=== PATIENT | female | born 1945 | race Caucasian/White ===

== ENCOUNTER 2020-02-05 16:14 | Emergency (ER) | payer MEDICARE ==
[~2020-02-05] VITALS: Ht 160 cm; Wt 72.6 kg
[2020-02-05] MEDS ORDERED: RISP1 PO ×2 (17:09→18:14)
[2020-02-05] MEDS ORDERED: RISP2 PO (17:10)
[2020-02-05] MEDS ORDERED: SODCHL1 PO (17:10)
[2020-02-05] MEDS ORDERED: ALBU90OI INH ×2 (17:10→18:14)
[2020-02-05] MEDS ORDERED: Aspirin EC81 MG PO (17:11)
[2020-02-05] MEDS ORDERED: AMLO5 PO (17:11)
[2020-02-05] MEDS ORDERED: BENA20 (17:12)
[2020-02-05] MEDS ORDERED: Vitamin D2000 UNIT PO (17:12)
[2020-02-05] MEDS ORDERED: ATOR20 PO (17:12)
[2020-02-05] MEDS ORDERED: GABA100 PO (17:13)
[2020-02-05] MEDS ORDERED: HYDPAM25 PO (17:14)
[2020-02-05] MEDS ORDERED: LABE100 PO (17:14)
[2020-02-05] MEDS ORDERED: MAGNESIUM OXID500 MG (17:14)
[2020-02-05] MEDS ORDERED: ONDA4 PO (17:15)
[2020-02-05] MEDS ORDERED: NICO21TP TOP (17:15)
[2020-02-05] MEDS ORDERED: PANT40 PO (17:16)
[2020-02-05] MEDS ORDERED: SENNA LAXATIVE8.6 MG PO (17:16)
[2020-02-05] MEDS ORDERED: Benazepril HCl20 MG PO (18:14)
[2020-02-05] MEDS ORDERED: Vistaril25 MG PO (18:14)
[2020-02-05] MEDS ORDERED: Norvasc5 MG PO (18:14)
[2020-02-08] MEDS ORDERED: Risperidone1 MG PO (16:51)
[2020-02-08] MEDS ORDERED: RISPERIDONE PO (16:52)
[2020-02-08] MEDS ORDERED: PROZAC20 MG PO (16:53)
[2020-02-08] MEDS ORDERED: Vistaril25 MG PO (16:53)
[2020-02-08] MEDS ORDERED: LOTENSIN20 MG PO (16:54)
[2020-02-08] MEDS ORDERED: ATORVASTATIN CA20 MG PO (16:54)
[2020-02-08] MEDS ORDERED: LABE100 PO (16:54)
== END 2020-02-05 19:40 | disposition home or self-care (01) ==
LOC: ER 16:14
DX: F41.0 Panic disorder [episodic paroxysmal anxiety] (principal); Z88.0 Allergy status to penicillin; Z88.1 Allergy status to other antibiotic agents; Z91.040 Latex allergy status; Z88.8 Allergy status to other drugs, medicaments and biological substances; Z79.899 Other long term (current) drug therapy; Z79.82 Long term (current) use of aspirin; F31.9 Bipolar disorder, unspecified
CPT/HCPCS: 99284

== ENCOUNTER 2020-02-06 16:04 | Emergency (ER) | payer MEDICARE ==
[~2020-02-06] VITALS: Ht 160 cm; Wt 72.6 kg
[~2020-02-06 16:04] MED LIST: ALBU90OI INH; AMLO5 PO; ATOR20 PO; Aspirin EC81 MG PO; BENA20; Benazepril HCl20 MG PO; GABA100 PO; HYDPAM25 PO; LABE100 PO; MAGNESIUM OXID500 MG; NICO21TP TOP; Norvasc5 MG PO; ONDA4 PO; PANT40 PO; RISP1 PO; RISP2 PO; SENNA LAXATIVE8.6 MG PO; SODCHL1 PO; Vistaril25 MG PO; Vitamin D2000 UNIT PO
[2020-02-06 16:32] LABS: BASOPHILS ABSOLUTE AUTO 0.04 K/mm3 (0.00-0.23); BASOPHILS PERCENT AUTO 1 % (0-2); EOSINOPHILS ABSOLUTE AUTO 0.37 K/mm3 (0.00-0.68); EOSINOPHILS PERCENT AUTO 5 % (0-6); Hemoglobin 13.1 g/dL (11.5-16.0); IMMATURE GRAN ABSOLUTE AUTO 0.03 K/mm3 (0.00-0.10); IMMATURE GRAN PERCENT AUTO 0 % (0-1); LYMPHOCYTES ABSOLUTE AUTO 1.75 K/mm3 (0.84-5.20); LYMPHOCYTES PERCENT AUTO 25 % (21-46); MONOCYTES ABSOLUTE AUTO 0.66 K/mm3 (0.16-1.47); MONOCYTES PERCENT AUTO 9 % (4-13); Mean Corpuscular HGB 31.3 pg (26.0-34.0); Mean Corpuscular HGB Conc 33.6 g/dL (31.5-36.5); Mean Corpuscular Volume 93 fL (80-100); Mean Platelet Volume 9.1 fL (9.1-12.4); NEUTROPHILS ABSOLUTE AUTO 4.29 K/mm3 (1.96-9.15); NEUTROPHILS PERCENT AUTO 60 % (41-73); Platelet Count 250 K/mm3 (150-400); RDW Coefficient Variation 12.9 % (11.7-14.2); RDW Standard Deviation 44.4 fL (35.1-46.3); Red Blood Cell Count 4.18 M/mm3 (3.80-5.20); White Blood Cell Count 7.14 K/mm3 (4.00-11.30)
[2020-02-06 16:55] LABS: Alanine Aminotransfer (ALT/SGP 28 U/L (12-78); Albumin, Blood 3.9 g/dL (3.4-5.0); Albumin/Globulin Ratio 1.2 (0.8-1.8); Alk Phos 82 U/L (50-136); Anion Gap 7 mmol/L (6-16); Aspartate Aminotrans (AST/SGOT 17 U/L (12-37); Bilirubin, Total 0.3 mg/dL (0.1-1.0); Blood Urea Nitrogen 14 mg/dL (8-24); Bun/Creatinine Ratio 19.7 (12.0-20.0); CO2, Blood 23 mmol/L (21-32); Calcium, Blood 9.5 mg/dL (8.5-10.1); Chloride, Blood 103 mmol/L (98-108); Creatinine, Blood 0.71 mg/dL (0.40-1.00); Globulin, Blood 3.3 g/dL (2.2-4.0); Glomerular Filtration Rate >60 (60-); Glucose, Blood 117 mg/dL (70-99); Potassium, Blood 3.6 mmol/L (3.5-5.5); Sodium, Blood 133 mmol/L (136-145); Total Protein, Blood 7.2 g/dL (6.4-8.2); Troponin I <0.015 ng/mL (0.000-0.040)
[2020-02-08] MEDS ORDERED: Risperidone1 MG PO (16:51)
[2020-02-08] MEDS ORDERED: RISPERIDONE PO (16:52)
[2020-02-08] MEDS ORDERED: Vistaril25 MG PO (16:53)
[2020-02-08] MEDS ORDERED: PROZAC20 MG PO (16:53)
[2020-02-08] MEDS ORDERED: LABE100 PO (16:54)
[2020-02-08] MEDS ORDERED: LOTENSIN20 MG PO (16:54)
[2020-02-08] MEDS ORDERED: ATORVASTATIN CA20 MG PO (16:54)
== END 2020-02-06 18:00 | disposition home or self-care (01) ==
LOC: ER 16:04
PROVIDERS: Student in an Organized Health Care Education/Training Program
DX: F41.0 Panic disorder [episodic paroxysmal anxiety] (principal); Z88.0 Allergy status to penicillin; Z88.1 Allergy status to other antibiotic agents; Z91.040 Latex allergy status; Z88.8 Allergy status to other drugs, medicaments and biological substances; Z79.899 Other long term (current) drug therapy; F31.9 Bipolar disorder, unspecified; F17.200 Nicotine dependence, unspecified, uncomplicated
CPT/HCPCS: 36415; 80053; 84484; 85025; 93005; 93010; 96374; 99284-25; J2060

== ENCOUNTER 2020-03-25 19:10 | Emergency (ER) | payer MEDICARE ==
[~2020-03-25] VITALS: Ht 165.1 cm; Wt 68.0 kg
[~2020-03-25 19:10] MED LIST changes: -AMLO5 PO; -GABA100 PO; -HYDPAM25 PO; -PANT40 PO; +RISPERIDONE PO; +Risperidone1 MG PO; -SODCHL1 PO
[2020-03-25 20:03] LABS: BASOPHILS ABSOLUTE AUTO 0.04 K/mm3 (0.00-0.23); BASOPHILS PERCENT AUTO 1 % (0-2); EOSINOPHILS ABSOLUTE AUTO 0.19 K/mm3 (0.00-0.68); EOSINOPHILS PERCENT AUTO 3 % (0-6); Hematocrit 34.1 % (33.0-51.0); Hemoglobin 12.2 g/dL (11.5-16.0); IMMATURE GRAN ABSOLUTE AUTO 0.04 K/mm3 (0.00-0.10); IMMATURE GRAN PERCENT AUTO 1 % (0-1); LYMPHOCYTES ABSOLUTE AUTO 2.18 K/mm3 (0.84-5.20); LYMPHOCYTES PERCENT AUTO 29 % (21-46); MONOCYTES ABSOLUTE AUTO 0.72 K/mm3 (0.16-1.47); MONOCYTES PERCENT AUTO 9 % (4-13); Mean Corpuscular HGB 31.6 pg (26.0-34.0); Mean Corpuscular HGB Conc 35.8 g/dL (31.5-36.5); Mean Corpuscular Volume 88 fL (80-100); NEUTROPHILS ABSOLUTE AUTO 4.45 K/mm3 (1.96-9.15); NEUTROPHILS PERCENT AUTO 59 % (41-73); Platelet Count 259 K/mm3 (150-400); RDW Coefficient Variation 11.9 % (11.7-14.2); RDW Standard Deviation 38.8 fL (35.1-46.3); Red Blood Cell Count 3.86 M/mm3 (3.80-5.20); White Blood Cell Count 7.62 K/mm3 (4.00-11.30)
[2020-03-25 20:20] LABS: Alanine Aminotransfer (ALT/SGP 17 U/L (12-78); Albumin, Blood 3.8 g/dL (3.4-5.0); Albumin/Globulin Ratio 1.2 (0.8-1.8); Alk Phos 78 U/L (50-136); Anion Gap 7 mmol/L (6-16); Aspartate Aminotrans (AST/SGOT 14 U/L (12-37); Bilirubin, Total 0.5 mg/dL (0.1-1.0); Blood Urea Nitrogen 10 mg/dL (8-24); Bun/Creatinine Ratio 19.4 (12.0-20.0); CO2, Blood 23 mmol/L (21-32); Calcium, Blood 8.6 mg/dL (8.5-10.1); Chloride, Blood 91 mmol/L (98-108); Creatinine, Blood 0.52 mg/dL (0.40-1.00); Globulin, Blood 3.3 g/dL (2.2-4.0); Glomerular Filtration Rate >60 (60-); Glucose, Blood 108 mg/dL (70-99); Potassium, Blood 3.7 mmol/L (3.5-5.5); Sodium, Blood 121 mmol/L (136-145); Total Protein, Blood 7.1 g/dL (6.4-8.2)
[2020-03-25] MEDS ORDERED: SODCHL1 PO (22:11)
[2020-03-25] MEDS ORDERED: Protonix40 MG PO (22:11)
== END 2020-03-25 22:28 | disposition home or self-care (01) ==
LOC: ER 19:10
PROVIDERS: Emergency Medicine
DX: R10.13 Epigastric pain (principal); Z88.0 Allergy status to penicillin; Z88.1 Allergy status to other antibiotic agents; Z91.040 Latex allergy status; Z88.8 Allergy status to other drugs, medicaments and biological substances; Z79.899 Other long term (current) drug therapy; Z79.82 Long term (current) use of aspirin; F41.9 Anxiety disorder, unspecified; F31.9 Bipolar disorder, unspecified; F17.200 Nicotine dependence, unspecified, uncomplicated
CPT/HCPCS: 36415; 80053; 85025; 96361; 96374; 96375; 96376; 99284-25; C9113; J1170; J2405; J7030

== ENCOUNTER 2020-03-29 13:29 | Emergency (ER) | payer MEDICARE ==
[~2020-03-29] VITALS: Ht 165.1 cm; Wt 68.0 kg
[~2020-03-29 13:29] MED LIST changes: +Protonix40 MG PO; +SODCHL1 PO
[2020-03-29 14:04] LABS: BASOPHILS ABSOLUTE AUTO 0.05 K/mm3 (0.00-0.23); BASOPHILS PERCENT AUTO 1 % (0-2); EOSINOPHILS ABSOLUTE AUTO 0.14 K/mm3 (0.00-0.68); EOSINOPHILS PERCENT AUTO 1 % (0-6); Hematocrit 34.9 % (33.0-51.0); Hemoglobin 12.2 g/dL (11.5-16.0); IMMATURE GRAN ABSOLUTE AUTO 0.03 K/mm3 (0.00-0.10); IMMATURE GRAN PERCENT AUTO 0 % (0-1); LYMPHOCYTES ABSOLUTE AUTO 2.24 K/mm3 (0.84-5.20); LYMPHOCYTES PERCENT AUTO 20 % (21-46); MONOCYTES ABSOLUTE AUTO 0.72 K/mm3 (0.16-1.47); MONOCYTES PERCENT AUTO 7 % (4-13); Mean Corpuscular Volume 89 fL (80-100); Mean Platelet Volume 9.4 fL (9.1-12.4); NEUTROPHILS ABSOLUTE AUTO 7.87 K/mm3 (1.96-9.15); NEUTROPHILS PERCENT AUTO 71 % (41-73); Platelet Count 258 K/mm3 (150-400); RDW Coefficient Variation 12.1 % (11.7-14.2); RDW Standard Deviation 39.8 fL (35.1-46.3); Red Blood Cell Count 3.93 M/mm3 (3.80-5.20); White Blood Cell Count 11.05 K/mm3 (4.00-11.30)
[2020-03-29 14:11] LABS: Alanine Aminotransfer (ALT/SGP 17 U/L (12-78); Albumin, Blood 3.7 g/dL (3.4-5.0); Albumin/Globulin Ratio 1.1 (0.8-1.8); Alk Phos 74 U/L (50-136); Anion Gap 8 mmol/L (6-16); Aspartate Aminotrans (AST/SGOT 15 U/L (12-37); Bilirubin, Total 0.3 mg/dL (0.1-1.0); Blood Urea Nitrogen 17 mg/dL (8-24); Bun/Creatinine Ratio 25.4 (12.0-20.0); CO2, Blood 24 mmol/L (21-32); Calcium, Blood 8.6 mg/dL (8.5-10.1); Chloride, Blood 90 mmol/L (98-108); Creatinine, Blood 0.67 mg/dL (0.40-1.00); Globulin, Blood 3.3 g/dL (2.2-4.0); Glomerular Filtration Rate >60 (60-); Glucose, Blood 98 mg/dL (70-99); Potassium, Blood 3.9 mmol/L (3.5-5.5); Sodium, Blood 122 mmol/L (136-145)
[2020-03-29 14:28] LABS: Source, Urine Clean Catch
[2020-03-29 14:50] LABS: Appearance, Urine Clear (Clear); Bilirubin, Urine Neg (Neg); Blood, Urine Neg (Neg); Color, Urine Yellow (P-Yellow); Glucose Qualitative, Urine Neg (Neg); Ketones, Urine Neg (Neg); Leukocyte Esterase, Urine Neg (Neg); Nitrite, Urine Neg (Neg); Protein, Urine Neg (Neg); Urobilinogen, Urine NORM (Normal)
[2020-03-29] MEDS ORDERED: Omeprazole20 M1 PO (17:11)
[2020-03-30] MEDS ORDERED: AMLO5 PO (22:33)
[2020-03-30] MEDS ORDERED: HYDPAM25 PO (22:33)
[2020-03-30] MEDS ORDERED: SODCHL1 PO (22:33)
[2020-03-30] MEDS ORDERED: PANT40 PO (22:34)
[2020-03-30] MEDS ORDERED: Prozac40 MG PO (22:38)
[2020-03-30] MEDS ORDERED: ATORVASTATIN CA20 MG PO (22:38)
[2020-03-30] MEDS ORDERED: GABA100 PO (22:39)
[2020-03-30] MEDS ORDERED: LOTENSIN20 MG PO (22:39)
[2020-03-30] MEDS ORDERED: ALBU90OI INH (22:39)
[2020-03-30] MEDS ORDERED: LABE100 PO (22:39)
[2020-04-02] MEDS ORDERED: ACETAMIN-CODE12.5 M3 PO (12:29)
[2020-04-02] MEDS ORDERED: Aspir 8181 MG PO (12:30)
[2020-04-02] MEDS ORDERED: MIRALAX17 GM PO (12:30)
[2020-04-02] MEDS ORDERED: CIPR500 PO (12:30)
[2020-04-02] MEDS ORDERED: DOCU100 PO (12:31)
[2020-04-02] MEDS ORDERED: Vitamin D2000 UNIT PO (12:31)
== END 2020-03-29 17:35 | disposition home or self-care (01) ==
LOC: ER 13:29
PROVIDERS: Physician Assistant
DX: K29.70 Gastritis, unspecified, without bleeding (principal); F41.9 Anxiety disorder, unspecified; F31.9 Bipolar disorder, unspecified; F17.200 Nicotine dependence, unspecified, uncomplicated; Z88.0 Allergy status to penicillin; Z88.8 Allergy status to other drugs, medicaments and biological substances; Z88.5 Allergy status to narcotic agent; Z79.82 Long term (current) use of aspirin; Z91.040 Latex allergy status; Z79.899 Other long term (current) drug therapy
CPT/HCPCS: 36415; 74177; 80053; 81003; 83690; 85025; 99284-25; Q9967

== ENCOUNTER 2020-03-30 19:40 | Inpatient (IN) | payer MEDICARE ==
[~2020-03-30] VITALS: Ht 165.1 cm; Wt 71.8 kg
[~2020-03-30 19:40] MED LIST changes: +Omeprazole20 M1 PO
[2020-03-30 20:44] LABS: BASOPHILS ABSOLUTE AUTO 0.04 K/mm3 (0.00-0.23); BASOPHILS PERCENT AUTO 1 % (0-2); EOSINOPHILS ABSOLUTE AUTO 0.25 K/mm3 (0.00-0.68); EOSINOPHILS PERCENT AUTO 3 % (0-6); Hemoglobin 12.8 g/dL (11.5-16.0); IMMATURE GRAN ABSOLUTE AUTO 0.04 K/mm3 (0.00-0.10); IMMATURE GRAN PERCENT AUTO 1 % (0-1); LYMPHOCYTES ABSOLUTE AUTO 2.33 K/mm3 (0.84-5.20); LYMPHOCYTES PERCENT AUTO 28 % (21-46); MONOCYTES ABSOLUTE AUTO 0.65 K/mm3 (0.16-1.47); MONOCYTES PERCENT AUTO 8 % (4-13); Mean Corpuscular HGB 31.4 pg (26.0-34.0); Mean Corpuscular HGB Conc 36.6 g/dL (31.5-36.5); Mean Corpuscular Volume 86 fL (80-100); Mean Platelet Volume 8.9 fL (9.1-12.4); NEUTROPHILS ABSOLUTE AUTO 5.06 K/mm3 (1.96-9.15); NEUTROPHILS PERCENT AUTO 60 % (41-73); Platelet Count 250 K/mm3 (150-400); RDW Coefficient Variation 11.8 % (11.7-14.2); RDW Standard Deviation 37.2 fL (35.1-46.3); Red Blood Cell Count 4.08 M/mm3 (3.80-5.20); White Blood Cell Count 8.37 K/mm3 (4.00-11.30)
[2020-03-30 21:04] LABS: Troponin I <0.015 ng/mL (0.000-0.040)
[2020-03-30 21:09] LABS: Alanine Aminotransfer (ALT/SGP 20 U/L (12-78); Albumin, Blood 3.9 g/dL (3.4-5.0); Albumin/Globulin Ratio 1.2 (0.8-1.8); Alk Phos 78 U/L (50-136); Anion Gap 8 mmol/L (6-16); Aspartate Aminotrans (AST/SGOT 15 U/L (12-37); Bilirubin, Total 0.4 mg/dL (0.1-1.0); Blood Urea Nitrogen 8 mg/dL (8-24); CO2, Blood 25 mmol/L (21-32); Chloride, Blood 86 mmol/L (98-108); Creatinine, Blood 0.57 mg/dL (0.40-1.00); Globulin, Blood 3.2 g/dL (2.2-4.0); Glomerular Filtration Rate >60 (60-); Glucose, Blood 102 mg/dL (70-99); Potassium, Blood 3.3 mmol/L (3.5-5.5); Sodium, Blood 119 mmol/L (136-145); Total Protein, Blood 7.1 g/dL (6.4-8.2)
[2020-03-30] MEDS ORDERED: SODCHL1 PO ×2 (22:33)
[2020-03-30] MEDS ORDERED: AMLO5 PO ×2 (22:33)
[2020-03-30] MEDS ORDERED: HYDPAM25 PO ×2 (22:33)
[2020-03-30] MEDS ORDERED: PANT40 PO ×2 (22:34)
[2020-03-30] MEDS ORDERED: Prozac40 MG PO ×2 (22:38)
[2020-03-30] MEDS ORDERED: ATORVASTATIN CA20 MG PO ×2 (22:38)
[2020-03-30] MEDS ORDERED: LOTENSIN20 MG PO ×2 (22:39)
[2020-03-30] MEDS ORDERED: GABA100 PO ×2 (22:39)
[2020-03-30] MEDS ORDERED: ALBU90OI INH ×2 (22:39)
[2020-03-30] MEDS ORDERED: LABE100 PO ×2 (22:39)
[2020-03-30 23:45] LABS: Albumin, Blood 3.8 g/dL (3.4-5.0); Anion Gap 9 mmol/L (6-16); Blood Urea Nitrogen 8 mg/dL (8-24); Bun/Creatinine Ratio 13.9 (12.0-20.0); CO2, Blood 23 mmol/L (21-32); Calcium, Blood 8.5 mg/dL (8.5-10.1); Chloride, Blood 89 mmol/L (98-108); Creatinine, Blood 0.58 mg/dL (0.40-1.00); Glomerular Filtration Rate >60 (60-); Glucose, Blood 97 mg/dL (70-99); Phosphorus, Blood 2.5 mg/dL (2.5-4.9); Potassium, Blood 3.2 mmol/L (3.5-5.5); Sodium, Blood 121 mmol/L (136-145)
--- NOTE | 2020-03-31 01:30 | NUR ---
ICU ADMIT PT ARRIVED TO ICU VIA GURNEY. SHE WAS ABLE TO STAND AND TRANSFER TO ICU BED WITH NO ISSUES. SHE WAS FAILRY STEADY ON HER FEET, BUT DID STATE HER LEGS FEEL WEAK. SHE IS C/O BACK PAIN AND SOME MINIMAL ABD PAIN. VITALS ARE STABLE AT THIS TIME. PT DOES HAVE POTASSIUM RUNNING IN HER IV AND THIS IS CAUSING HER A BIT OF DISCOMFORT. PT HAS AN IV TO HER RIGHT HAND THAT IS PATENT AND SL. PT'S ABD IS ROUND, SHE STATES IT HURTS WITH SOME PALPATATION. STATES SHE HAD A BM THIS AM AND THAT SHE IS MOSTLY CONSTIPATED. PT USED BSC IN ER FOR URINATION. OVERALL SKIN IS CDI WITH NO WOUNDS. PT WAS ABLE TO GIVE HER HEALTH HISTORY TO THIS RN. HOWEVER SHE DOES STATES SHE IS SURE THERE ARE THINGS SHE IS NOT TELL THIS RN B/C SHE CANNOT REMEMEBER THEM RIGHT NOW. PT IS COOPERATIVE WITH HER CARE, BUT ANXIOUS. BREATHING APPEARS TO BE SLIGHTLY LABORED. PT STATES THIS JUST STARTED EARLIER TODAY. PT ON RA WITH SATS 96%. PT'S LUNGS BILATERAL ARE VERY WHEEZY. DR PRATT IN ROOM TO ASSESS THE NEED FOR CENTRAL LINE ACCESS. CALL LIGHT WAS REVIEWED WITH PT AND IN REACH OF PT. WILL CON'T TO MONITOR AND KEEP PT SAFE.
[2020-03-31 01:45] LABS: Source, Urine Clean Catch
[2020-03-31 01:48] LABS: Bilirubin, Urine Neg (Neg); Blood, Urine 1+ (Neg); Glucose Qualitative, Urine Neg (Neg); Ketones, Urine 1+ (Neg); Leukocyte Esterase, Urine 2+ (Neg); Nitrite, Urine Neg (Neg); Protein, Urine 3+ (Neg); Specific Gravity, Urine 1.005 (1.003-1.022); Urobilinogen, Urine NORM (Normal)
[2020-03-31 02:10] LABS: Amorphous Light (0-Heavy); Appearance, Urine Hazy (Clear); Bacteria Few /hpf; Color, Urine Yellow (P-Yellow); Red Blood Cells, Urine 0-2 /hpf (0-2); Squamous Epithelial Cells Few /hpf (Few)
[2020-03-31 04:26] LABS: BASOPHILS ABSOLUTE AUTO 0.04 K/mm3 (0.00-0.23); BASOPHILS PERCENT AUTO 1 % (0-2); EOSINOPHILS ABSOLUTE AUTO 0.13 K/mm3 (0.00-0.68); EOSINOPHILS PERCENT AUTO 2 % (0-6); Hematocrit 35.8 % (33.0-51.0); Hemoglobin 12.8 g/dL (11.5-16.0); IMMATURE GRAN ABSOLUTE AUTO 0.04 K/mm3 (0.00-0.10); IMMATURE GRAN PERCENT AUTO 1 % (0-1); LYMPHOCYTES ABSOLUTE AUTO 1.39 K/mm3 (0.84-5.20); LYMPHOCYTES PERCENT AUTO 18 % (21-46); MONOCYTES ABSOLUTE AUTO 0.36 K/mm3 (0.16-1.47); MONOCYTES PERCENT AUTO 5 % (4-13); Mean Corpuscular HGB 31.1 pg (26.0-34.0); Mean Corpuscular HGB Conc 35.8 g/dL (31.5-36.5); Mean Corpuscular Volume 87 fL (80-100); Mean Platelet Volume 8.7 fL (9.1-12.4); NEUTROPHILS PERCENT AUTO 75 % (41-73); Platelet Count 228 K/mm3 (150-400); RDW Coefficient Variation 11.9 % (11.7-14.2); RDW Standard Deviation 38.3 fL (35.1-46.3); Red Blood Cell Count 4.12 M/mm3 (3.80-5.20); White Blood Cell Count 7.86 K/mm3 (4.00-11.30)
[2020-03-31 04:54] LABS: Albumin, Blood 3.9 g/dL (3.4-5.0); Anion Gap 8 mmol/L (6-16); Blood Urea Nitrogen 7 mg/dL (8-24); CO2, Blood 24 mmol/L (21-32); Calcium, Blood 8.7 mg/dL (8.5-10.1); Chloride, Blood 89 mmol/L (98-108); Creatinine, Blood 0.58 mg/dL (0.40-1.00); Glomerular Filtration Rate >60 (60-); Glucose, Blood 110 mg/dL (70-99); Magnesium, Blood 1.5 mg/dL (1.6-2.4); Phosphorus, Blood 2.7 mg/dL (2.5-4.9); Potassium, Blood 3.6 mmol/L (3.5-5.5); Sodium, Blood 121 mmol/L (136-145); Uric Acid, Blood 2.5 mg/dL (2.6-6.0)
--- NOTE | 2020-03-31 05:36 | NUR ---
SHIFT SUMMARY PT CON'T TO BE STABLE THUS FAR IN SHIFT. VITALS ARE STABLE. SHE DOES HAVE AN ELEVATED BP AND DR PRATT AWARE. DR PRATT ATTEMPTED TO PLACE A CENTRAL LINE TO LEFT IJ HOWEVER WAS NOT SUCCESSFUL. PT STATES SHE HAS STENOSIS SHE THINKS. WILL HAVE DAY SHIFT PLACE A PICC LINE IF NEEDED AND POSSIBLE. PT IS SL AND DR PRATT ORDERED TO HOLD THE 3% NA. PT WAS TAKEN TO CT FOR HER HEAD. SHE TOLERATED THIS WELL. PT HAS BEEN UP TO THE BSC SEVERAL TIMES T/O NIGHT. SHE IS ABLE TO STAND FAIRLY WELL AND USE CALL LIGHT WHEN NEEDED. CLEAR YELLOW URINE FOR HER OUTPUT. PT SEEMS VERY ANXIOUS WITH HER CARE, BUT IS VERY PLESANT AND COOPERATIVE. WILL CON'T TO MONITOR AND KEEP PT SAFE TILL REPORT TO ONCOMING RN.
--- NOTE | 2020-03-31 07:30 | NUR ---
REC'D REPORT FROM NOC RN AND AM NOW ASSUMING CARE OF PT. PT REPORTS CONTINUED NAUSEA, DESPITE LAST ZOFRAN DOSE. WILL DISCUSS ADDING ANOTHER ANTI-EMETIC. PT ALSO REPORTS FENTANYL UNSUCCESSFUL IN REDUCING ABD AND LOW BACK PAIN. WILL DISCUSS CHANGING PAIN RELIEF REGIMEN WITH DR DONAHUE. PT REPORTS BACK PAIN STARTED AROUND THE SAME TIME ABD PAIN THAT PT RELATES TO CONSTIPATION.
--- NOTE | 2020-03-31 08:33 | NUR ---
DR STEVENSON IN ROOM TO ASSESS PT. DISCUSSED CONTINUED BACK PAIN DESPITE FENTANYL. DR TO CONSIDER TORADOL DEPENDING ON LABS/HX. ALSO REPORTED CONTINUED NAUSEA DESPITE ZOFRAN. SEE NEW ORDERS.
--- NOTE | 2020-03-31 10:15 | NUR ---
CALLED AND LEFT MESSAGE WITH DR STEVENSON RE: RECHECKING NA LEVEL, POSSIBLE PICC LINE PLACEMENT, AND STARTING 3% SODIUM.
--- NOTE | 2020-03-31 12:23 | NUR ---
NEW PROVIDER APPT MADE BY [employer]OCI[employer]. THIS RN ADDED APPT TO DISCHARGE INSTRUCTIONS.
--- NOTE | 2020-03-31 13:02 | NUR ---
PT UPDATE: PT OOB TO BSC AT THIS TIME. PT HAD GOOD DIURESIS FROM LASIX 20MG IVP THIS AM. PT OOB TO VOID. PT'S DAUGHTER AT THE BEDSIDE AND UPDATED WITH PT'S CURRENT STATUS. PT REPORTS, "MY BELLY IS BETTER." REPORTS DECREASE IN ABD PAIN AND NO C/O NAUSEA.
--- NOTE | 2020-03-31 18:01 | NUR ---
CALLED DR CHOUDHURY RE: NEW SODIUM RESULTS. INCREASED TO 3% SODIUM CHLORIDE IV TO 35ML/HR AND RECHECK SODIUM LEVEL AT [address] CHOUDHURY WITH RESULTS BY 2099.
--- NOTE | 2020-03-31 18:20 | NUR ---
SHIFT SUMMARY: PT ALERT AND ORIENTED X3. COOPERATIVE W/CARE. PT ANXIOUS AT TIMES AND HAS PRN VISTARIL AND REC'D ONE DOSE TODAY. PT WITH C/O INITIALLY OF ABD PAIN, PT STATES, "IT FEELS RAW IN THERE" AND NEW LOW-MID BACK PAIN. PT STATES TO DR ARTIS ABD PAIN RESOLVED, THEN BEGAN TO STATE CONCERN THAT SHE DID STILL HAVE RESIDUAL ABD DISCOMFORT. PT FOUND THE MOST RELIEF FROM TORADOL IV T/O SHIFT. ZOFRAN GIVEN FOR AM NAUSEA. LUNGS WITH SCATTERED WHEEZES T/O, IMPROVED THIS AFTERNOON AND GENERALLY DIMINISHED IN BILATERAL BASES. SP02 >90% ON RA. HR REGULAR, SR-60'S RANGE. NA LEVEL 121 WITH 3% SODIUM CHLORIDE AT 35ML/HR. WILL CONTINUE TO TREND SODIUM LEVEL. REPORTS NAUSEA IMPROVED/RESOLVED THIS AFTERNOON. NO BM THIS SHIFT. PT GIVEN SENNA AND STARTED ON MIRALAX THIS SHIFT.
--- NOTE | 2020-03-31 19:31 | NUR ---
REPORTED OFF TO KOBE GUZMÁN WHOM IS NOW ASSUMING CARE OF THIS PT.
--- NOTE | 2020-03-31 20:15 | NUR ---
INITAL SHIFT ASSESSMENT PT IS RESTING IN ROOM SITTING UP IN BED WITH EYES CLOSED SNORING. SHE EASILY WOKE TO VERBAL STIMULI. STATES SHE IS COMFORTABLE AT THIS TIME AND DENIES ANY PAIN. NIGHT MEDS WERE GIVEN LABS WERE DRAWN. LABETALOL WAS HELD DUE TO LOW BP. WILL ADMINISTER LATER NEEDED FOR ELEVATED BP. VITALS ARE STABLE AT THIS TIME. PT IS ON RA AND DOES SNORE THUS HER OXYGEN SATS DO DIP. WILL ADMINISTER OXYGEN IF NEEDED. PT HAS BEEN USING CALL LIGHT WHEN UP TO [facility] [place] OVERALL PT IS STABLE AND ASSESSMENT IS BENIGN. WILL CON'T TO MONITOR AND KEEP PT SAFE T/O REMAINDER OF SHIFT.
--- NOTE | 2020-04-01 00:32 | NUR ---
SHIFT UPDATE PT CON'T TO BE STABLE. NA WAS DRAWN AGAIN AND RESULTS CALLED TO DR CHOUDHURY. HE ORDERED TO HAVE THE 3% NA TO BE TURNED OFF AT 0145. PT HAS BEEN UP TO THE BEDSIDE COMMODE T/O SHIFT AND CON'T TO USE CALL LIGHT.
[2020-04-01 04:22] LABS: BASOPHILS ABSOLUTE AUTO 0.01 K/mm3 (0.00-0.23); BASOPHILS PERCENT AUTO 0 % (0-2); EOSINOPHILS ABSOLUTE AUTO 0.03 K/mm3 (0.00-0.68); EOSINOPHILS PERCENT AUTO 0 % (0-6); Hematocrit 30.7 % (33.0-51.0); Hemoglobin 10.8 g/dL (11.5-16.0); IMMATURE GRAN ABSOLUTE AUTO 0.07 K/mm3 (0.00-0.10); IMMATURE GRAN PERCENT AUTO 0 % (0-1); LYMPHOCYTES ABSOLUTE AUTO 1.43 K/mm3 (0.84-5.20); LYMPHOCYTES PERCENT AUTO 9 % (21-46); MONOCYTES PERCENT AUTO 7 % (4-13); Mean Corpuscular HGB 31.4 pg (26.0-34.0); Mean Corpuscular HGB Conc 35.2 g/dL (31.5-36.5); Mean Corpuscular Volume 89 fL (80-100); Mean Platelet Volume 9.8 fL (9.1-12.4); NEUTROPHILS ABSOLUTE AUTO 13.07 K/mm3 (1.96-9.15); NEUTROPHILS PERCENT AUTO 83 % (41-73); Platelet Count 216 K/mm3 (150-400); RDW Coefficient Variation 12.4 % (11.7-14.2); RDW Standard Deviation 40.7 fL (35.1-46.3); Red Blood Cell Count 3.44 M/mm3 (3.80-5.20); White Blood Cell Count 15.71 K/mm3 (4.00-11.30)
[2020-04-01 04:48] LABS: Alanine Aminotransfer (ALT/SGP 13 U/L (12-78); Albumin, Blood 3.2 g/dL (3.4-5.0); Albumin/Globulin Ratio 1.2 (0.8-1.8); Alk Phos 65 U/L (50-136); Anion Gap 8 mmol/L (6-16); Aspartate Aminotrans (AST/SGOT 9 U/L (12-37); Bilirubin, Total 0.2 mg/dL (0.1-1.0); Blood Urea Nitrogen 22 mg/dL (8-24); Bun/Creatinine Ratio 23.7 (12.0-20.0); CO2, Blood 24 mmol/L (21-32); Calcium, Blood 8.4 mg/dL (8.5-10.1); Chloride, Blood 96 mmol/L (98-108); Creatinine, Blood 0.93 mg/dL (0.40-1.00); Globulin, Blood 2.7 g/dL (2.2-4.0); Glomerular Filtration Rate >60 (60-); Glucose, Blood 90 mg/dL (70-99); Magnesium, Blood 1.6 mg/dL (1.6-2.4); Potassium, Blood 4.2 mmol/L (3.5-5.5); Sodium, Blood 128 mmol/L (136-145); Total Protein, Blood 5.9 g/dL (6.4-8.2)
--- NOTE | 2020-04-01 06:32 | NUR ---
SHIFT SUMMARY PT HAS BEEN RESTING QUITE WELL T/O SHIFT. HER VITALS HAVE BEEN STABLE. SHE HAS BEEN REPOSITIONING HERSELF IN BED NEEDED. USES THE CALL LIGHT WHEN NEEDS TO GET UP TO THE BSC. PT'S PAIN TO HER BACK AND ABD HAS BEEN CONTROLLED WELL WITH TORADOL IV T/O SHIFT SCHEDULED. PT HAS SL IV'S. SHE HAS NO COMPLAINTS THIS AM. WILL CON'T TO MONITOR AND KEEP PT SAFE T/O REMAINDER OF SHIFT TILL BEDSIDE REPORT TO ONCOMING RN.
--- NOTE | 2020-04-01 07:38 | NUR ---
ASSUMED CARE RECEIVED REPORT FROM KOBE GUZMÁN. PT IS ALERT AND ORIENTED IN BED, APPEARS SLIGHTLY ANXIOUS BUT STATES SHE IS "OKAY". SHE IS ON ROOM AIR SAT'ING LOW 90s. SINUS RHYTHM, WITH ADEQUATE BP, AND RATE IN THE 70s. BED LOW AND LOCKED. CALL LIGHT WITHIN REACH.
--- NOTE | 2020-04-01 14:18 | NUR ---
UPDATE PT SLEEPING IN BED, APPEARING COMFORTABLE. NO ACUTE CHANGES. PT IS INDEPENDENT IN ROOM. CALL LIGHT WITHIN REACH.
--- NOTE | 2020-04-01 15:04 | NUR ---
HOLDING GABAPENTIN UNTIL PT WAKES UP FROM NAP. SHE DIDN'T GET GREAT SLEEP LAST NIGHT.
--- NOTE | 2020-04-01 17:04 | NUR ---
SHIFT SUMMARY PATIENT TO THE MEDICAL FLOOR LATE THIS AFTERNOON. PATIENT ALERT AND ORIENTED. PATIENT TRANSFERED TO THE BED WITHOUT ASSISTANCE. PATIENT ORIENTED TO THE ROOM. PATIENT DENIES NEEDS AT THIS TIME. PATIENT CURRENTLY SITTING UP IN BED WATCHING TELEVISION.
--- NOTE | 2020-04-02 03:38 | NUR ---
SHIFT SUMMARY PATIENT HAD NO ACUTE CHANGES OBSERVED. AXOX 3 AND INDEPENDENT IN ROOM. PIV AND POWERGLIDE FRANCINE INTACT. FLUID RESTRICTIONS 1,000 mL. SCHEDULE IV TORADOL GIVEN PER EMAR FOR BACK PAIN. DENIES SOB AND N/V. VSS/AFEBRILE. TRANDATE 100 MG HELD FOR SBP <105. BP WAS 96/45. PATIENT ABLE TO SLEEP MOST OF THE SHIFT. COOPERATIVE WITH CARE. CALL LIGHT IN REACH. BED IN LOWEST POSITION. WILL CONTINUE TO MONITOR UNTIL DAY SHIFT NURSE ASSUMES CARE.
[2020-04-02 05:36] LABS: BASOPHILS ABSOLUTE AUTO 0.04 K/mm3 (0.00-0.23); BASOPHILS PERCENT AUTO 1 % (0-2); EOSINOPHILS ABSOLUTE AUTO 0.22 K/mm3 (0.00-0.68); EOSINOPHILS PERCENT AUTO 3 % (0-6); Hematocrit 31.6 % (33.0-51.0); Hemoglobin 10.8 g/dL (11.5-16.0); IMMATURE GRAN ABSOLUTE AUTO 0.02 K/mm3 (0.00-0.10); IMMATURE GRAN PERCENT AUTO 0 % (0-1); LYMPHOCYTES ABSOLUTE AUTO 2.61 K/mm3 (0.84-5.20); LYMPHOCYTES PERCENT AUTO 32 % (21-46); MONOCYTES ABSOLUTE AUTO 0.75 K/mm3 (0.16-1.47); MONOCYTES PERCENT AUTO 9 % (4-13); Mean Corpuscular HGB 31.8 pg (26.0-34.0); Mean Corpuscular HGB Conc 34.2 g/dL (31.5-36.5); Mean Corpuscular Volume 93 fL (80-100); Mean Platelet Volume 9.4 fL (9.1-12.4); NEUTROPHILS ABSOLUTE AUTO 4.65 K/mm3 (1.96-9.15); NEUTROPHILS PERCENT AUTO 56 % (41-73); Platelet Count 194 K/mm3 (150-400); RDW Coefficient Variation 13.1 % (11.7-14.2); RDW Standard Deviation 44.8 fL (35.1-46.3); White Blood Cell Count 8.29 K/mm3 (4.00-11.30)
[2020-04-02 05:51] LABS: Anion Gap 7 mmol/L (6-16); Blood Urea Nitrogen 26 mg/dL (8-24); Bun/Creatinine Ratio 24.5 (12.0-20.0); CO2, Blood 26 mmol/L (21-32); Calcium, Blood 8.4 mg/dL (8.5-10.1); Chloride, Blood 100 mmol/L (98-108); Creatinine, Blood 1.06 mg/dL (0.40-1.00); Glomerular Filtration Rate 54 (60-); Glucose, Blood 77 mg/dL (70-99); Magnesium, Blood 1.7 mg/dL (1.6-2.4); Phosphorus, Blood 4.3 mg/dL (2.5-4.9); Potassium, Blood 4.8 mmol/L (3.5-5.5); Sodium, Blood 133 mmol/L (136-145)
[2020-04-02] MEDS ORDERED: ACETAMIN-CODE12.5 M3 PO ×2 (12:29)
[2020-04-02] MEDS ORDERED: Aspir 8181 MG PO ×2 (12:30)
[2020-04-02] MEDS ORDERED: CIPR500 PO ×2 (12:30)
[2020-04-02] MEDS ORDERED: MIRALAX17 GM PO ×2 (12:30)
[2020-04-02] MEDS ORDERED: Vitamin D2000 UNIT PO ×2 (12:31)
[2020-04-02] MEDS ORDERED: DOCU100 PO ×2 (12:31)
--- NOTE | 2020-04-02 14:19 | NUR ---
tried to get ahold of the patient's daughter three times. will attempt one more time then if i have not heard from her i will continue to try. the patient is concerned as this is her only contact in the area as she recently moved from a different state. the patient is concerned about her daughter and has become mildly distraught. will continue trying.
--- NOTE | 2020-04-02 15:53 | NUR ---
spoke with the patient and she says she would prefer to get home. she asked for a taxi as she was unable to get ahold of her daughter. patient's powerglide and peripheral were removed. all instructions given to the patient, and denies any other concerns. she was walked down by the nurse.
== END 2020-04-02 15:37 | disposition home or self-care (01) | DRG 644 ==
LOC: ER 19:40 → ICUW 22:15 → ER 03-31 00:18 → ICUW 03-31 00:18 → MEDS 04-01 16:37 → ICUW 04-01 16:37 → MEDS 04-01 16:37 → ENPENDDIS 04-02 15:32 → MEDS 04-02 15:37
PROVIDERS: Internal Medicine; Internal Medicine Nephrology; Physician Assistant; ADMIT Family Medicine
DX: E22.2 Syndrome of inappropriate secretion of antidiuretic hormone (principal); J44.1 Chronic obstructive pulmonary disease with (acute) exacerbation; N39.0 Urinary tract infection, site not specified; N17.9 Acute kidney failure, unspecified; M54.5 Low back pain; K59.00 Constipation, unspecified; I12.9 Hypertensive chronic kidney disease with stage 1 through stage 4 chronic kidney disease, or unspecified chronic kidney disease; N18.2 Chronic kidney disease, stage 2 (mild); E78.5 Hyperlipidemia, unspecified; K21.9 Gastro-esophageal reflux disease without esophagitis; E86.9 Volume depletion, unspecified; E83.42 Hypomagnesemia; E87.6 Hypokalemia; E88.09 Other disorders of plasma-protein metabolism, not elsewhere classified; F17.210 Nicotine dependence, cigarettes, uncomplicated; F32.9 Major depressive disorder, single episode, unspecified; F31.9 Bipolar disorder, unspecified; Z20.828 Contact with and (suspected) exposure to other viral communicable diseases; F41.9 Anxiety disorder, unspecified; D64.9 Anemia, unspecified
CPT/HCPCS: 36415; 70450; 71046; 80053; 80069; 81001; 82533; 83690; 83735; 83880; 83930; 83935; 84100; 84295; 84300; 84443; 84484; 84550; 85025; 85651; 87086; 93005; 93010; 94640; 94760; 96360; 97161; 99285-25; A9270; A9270-GY; C1751; J1650; J1885; J1940; J2405; J2930; J3010; J3475; J3480; J7030; Q0177

== ENCOUNTER 2020-04-11 10:41 | Observation (INO) | payer MEDICARE ==
[~2020-04-11] VITALS: Ht 160 cm; Wt 70.6 kg
[~2020-04-11 10:41] MED LIST changes: +ACETAMIN-CODE12.5 M3 PO; +AMLO5 PO; +ATORVASTATIN CA20 MG PO; +Aspir 8181 MG PO; +CIPR500 PO; +DOCU100 PO; +GABA100 PO; +HYDPAM25 PO; +LOTENSIN20 MG PO; +MIRALAX17 GM PO; +PANT40 PO; +Prozac40 MG PO
[2020-04-11 11:15] LABS: BASOPHILS ABSOLUTE AUTO 0.04 K/mm3 (0.00-0.23); BASOPHILS PERCENT AUTO 1 % (0-2); EOSINOPHILS ABSOLUTE AUTO 0.25 K/mm3 (0.00-0.68); EOSINOPHILS PERCENT AUTO 3 % (0-6); Hematocrit 37.1 % (33.0-51.0); Hemoglobin 13.1 g/dL (11.5-16.0); IMMATURE GRAN ABSOLUTE AUTO 0.04 K/mm3 (0.00-0.10); IMMATURE GRAN PERCENT AUTO 1 % (0-1); LYMPHOCYTES ABSOLUTE AUTO 1.94 K/mm3 (0.84-5.20); LYMPHOCYTES PERCENT AUTO 24 % (21-46); MONOCYTES ABSOLUTE AUTO 0.57 K/mm3 (0.16-1.47); MONOCYTES PERCENT AUTO 7 % (4-13); Mean Corpuscular HGB 31.3 pg (26.0-34.0); Mean Corpuscular HGB Conc 35.3 g/dL (31.5-36.5); Mean Corpuscular Volume 89 fL (80-100); Mean Platelet Volume 8.8 fL (9.1-12.4); NEUTROPHILS PERCENT AUTO 65 % (41-73); Platelet Count 314 K/mm3 (150-400); RDW Coefficient Variation 12.1 % (11.7-14.2); Red Blood Cell Count 4.19 M/mm3 (3.80-5.20); White Blood Cell Count 8.04 K/mm3 (4.00-11.30)
[2020-04-11 11:35] LABS: Magnesium, Blood 1.4 mg/dL (1.6-2.4); Phosphorus, Blood 2.7 mg/dL (2.5-4.9)
[2020-04-11 11:50] LABS: Alanine Aminotransfer (ALT/SGP 20 U/L (12-78); Albumin, Blood 4.1 g/dL (3.4-5.0); Albumin/Globulin Ratio 1.2 (0.8-1.8); Alk Phos 86 U/L (50-136); Anion Gap 9 mmol/L (6-16); Aspartate Aminotrans (AST/SGOT 14 U/L (12-37); Bilirubin, Total 0.5 mg/dL (0.1-1.0); Blood Urea Nitrogen 13 mg/dL (8-24); Bun/Creatinine Ratio 26.3 (12.0-20.0); CO2, Blood 23 mmol/L (21-32); Calcium, Blood 9.7 mg/dL (8.5-10.1); Chloride, Blood 91 mmol/L (98-108); Creatinine, Blood 0.49 mg/dL (0.40-1.00); Globulin, Blood 3.5 g/dL (2.2-4.0); Glomerular Filtration Rate >60 (60-); Glucose, Blood 128 mg/dL (70-99); Sodium, Blood 123 mmol/L (136-145); Total Protein, Blood 7.6 g/dL (6.4-8.2)
[2020-04-11] MEDS ORDERED: LABE100 PO (13:12)
[2020-04-11] MEDS ORDERED: GABA100 PO (13:12)
[2020-04-12 00:36] LABS: Source, Urine Clean Catch
[2020-04-12 00:44] LABS: Appearance, Urine Clear (Clear); Bilirubin, Urine Neg (Neg); Blood, Urine 1+ (Neg); Color, Urine Yellow (P-Yellow); Glucose Qualitative, Urine Neg (Neg); Ketones, Urine Neg (Neg); Leukocyte Esterase, Urine 1+ (Neg); Nitrite, Urine Neg (Neg); Protein, Urine Neg (Neg); Specific Gravity, Urine 1.015 (1.003-1.022); Urobilinogen, Urine NORM (Normal); pH, Urine 6.5 (5.0-8.0)
[2020-04-12 01:22] LABS: Bacteria Few /hpf; Red Blood Cells, Urine Rare /hpf (0-2); Squamous Epithelial Cells Few /hpf (Few); White Blood Cells, Urine 0-2 /hpf (0-5)
[2020-04-12 05:17] LABS: Hematocrit 34.1 % (33.0-51.0); Hemoglobin 11.8 g/dL (11.5-16.0)
[2020-04-12 05:57] LABS: Albumin, Blood 3.6 g/dL (3.4-5.0); Anion Gap 9 mmol/L (6-16); Blood Urea Nitrogen 15 mg/dL (8-24); Bun/Creatinine Ratio 22.8 (12.0-20.0); CO2, Blood 24 mmol/L (21-32); Calcium, Blood 8.8 mg/dL (8.5-10.1); Chloride, Blood 92 mmol/L (98-108); Creatinine, Blood 0.66 mg/dL (0.40-1.00); Glomerular Filtration Rate >60 (60-); Glucose, Blood 99 mg/dL (70-99); Phosphorus, Blood 3.5 mg/dL (2.5-4.9); Sodium, Blood 125 mmol/L (136-145)
[2020-04-12 15:45] LABS: Anion Gap 6 mmol/L (6-16); Blood Urea Nitrogen 17 mg/dL (8-24); Bun/Creatinine Ratio 21.1 (12.0-20.0); CO2, Blood 26 mmol/L (21-32); Calcium, Blood 8.4 mg/dL (8.5-10.1); Chloride, Blood 94 mmol/L (98-108); Creatinine, Blood 0.81 mg/dL (0.40-1.00); Glomerular Filtration Rate >60 (60-); Glucose, Blood 107 mg/dL (70-99); Potassium, Blood 4.2 mmol/L (3.5-5.5); Sodium, Blood 126 mmol/L (136-145)
[2020-04-13 05:06] LABS: BASOPHILS ABSOLUTE AUTO 0.07 K/mm3 (0.00-0.23); BASOPHILS PERCENT AUTO 1 % (0-2); EOSINOPHILS ABSOLUTE AUTO 0.16 K/mm3 (0.00-0.68); EOSINOPHILS PERCENT AUTO 2 % (0-6); Hemoglobin 11.9 g/dL (11.5-16.0); IMMATURE GRAN ABSOLUTE AUTO 0.02 K/mm3 (0.00-0.10); IMMATURE GRAN PERCENT AUTO 0 % (0-1); LYMPHOCYTES ABSOLUTE AUTO 2.07 K/mm3 (0.84-5.20); LYMPHOCYTES PERCENT AUTO 29 % (21-46); MONOCYTES ABSOLUTE AUTO 0.61 K/mm3 (0.16-1.47); MONOCYTES PERCENT AUTO 9 % (4-13); Mean Corpuscular HGB 31.3 pg (26.0-34.0); Mean Corpuscular Volume 92 fL (80-100); Mean Platelet Volume 9.3 fL (9.1-12.4); NEUTROPHILS ABSOLUTE AUTO 4.27 K/mm3 (1.96-9.15); NEUTROPHILS PERCENT AUTO 59 % (41-73); Platelet Count 287 K/mm3 (150-400); RDW Coefficient Variation 12.4 % (11.7-14.2); RDW Standard Deviation 42.3 fL (35.1-46.3)
[2020-04-13 05:29] LABS: Albumin, Blood 3.5 g/dL (3.4-5.0); Anion Gap 7 mmol/L (6-16); Blood Urea Nitrogen 21 mg/dL (8-24); Bun/Creatinine Ratio 24.9 (12.0-20.0); CO2, Blood 26 mmol/L (21-32); Calcium, Blood 8.9 mg/dL (8.5-10.1); Chloride, Blood 95 mmol/L (98-108); Creatinine, Blood 0.84 mg/dL (0.40-1.00); Glomerular Filtration Rate >60 (60-); Glucose, Blood 97 mg/dL (70-99); Magnesium, Blood 1.8 mg/dL (1.6-2.4); Phosphorus, Blood 3.5 mg/dL (2.5-4.9); Potassium, Blood 4.2 mmol/L (3.5-5.5); Sodium, Blood 128 mmol/L (136-145)
[2020-04-13] MEDS ORDERED: FURO20 PO (11:51)
[2020-04-13] MEDS ORDERED: NICODERM CQ1 EAC1 TOP (11:52)
[2020-04-13] MEDS ORDERED: POTA10T PO (11:52)
== END 2020-04-13 14:02 | disposition home or self-care (01) ==
LOC: ER 10:41 → MEDS 10:42
PROVIDERS: Emergency Medicine; Internal Medicine Nephrology; Nurse Practitioner Acute Care; Physician Assistant; ADMIT Family Medicine
DX: E22.2 Syndrome of inappropriate secretion of antidiuretic hormone (principal); E83.42 Hypomagnesemia; J44.9 Chronic obstructive pulmonary disease, unspecified; I12.9 Hypertensive chronic kidney disease with stage 1 through stage 4 chronic kidney disease, or unspecified chronic kidney disease; N18.2 Chronic kidney disease, stage 2 (mild); D63.1 Anemia in chronic kidney disease; F41.9 Anxiety disorder, unspecified; F32.9 Major depressive disorder, single episode, unspecified; F17.210 Nicotine dependence, cigarettes, uncomplicated; R10.13 Epigastric pain; Z79.82 Long term (current) use of aspirin; Z79.899 Other long term (current) drug therapy; E78.5 Hyperlipidemia, unspecified; Z66 Do not resuscitate; Z88.0 Allergy status to penicillin; Z91.040 Latex allergy status; Z88.8 Allergy status to other drugs, medicaments and biological substances
CPT/HCPCS: 36415; 80048; 80053; 80069; 81001; 83690; 83735; 83930; 83935; 84100; 84295; 84300; 85014; 85018; 85025; 93005; 93010; 96365; 96375; 99285-25; A9270-GY; J1650; J1940; J2405; J3475

== ENCOUNTER 2020-06-07 05:49 | Observation (INO) | payer MEDICARE ==
[~2020-06-07] VITALS: Ht 157.5 cm; Wt 66.3 kg
[~2020-06-07 05:49] MED LIST changes: +FURO20 PO; +NICODERM CQ1 EAC1 TOP; -PANT40 PO; +POTA10T PO
[2020-06-07 06:58] LABS: BASOPHILS ABSOLUTE AUTO 0.09 K/mm3 (0.00-0.23); BASOPHILS PERCENT AUTO 1 % (0-2); EOSINOPHILS ABSOLUTE AUTO 0.24 K/mm3 (0.00-0.68); EOSINOPHILS PERCENT AUTO 3 % (0-6); Hemoglobin 11.6 g/dL (11.5-16.0); IMMATURE GRAN ABSOLUTE AUTO 0.03 K/mm3 (0.00-0.10); IMMATURE GRAN PERCENT AUTO 0 % (0-1); LYMPHOCYTES ABSOLUTE AUTO 2.18 K/mm3 (0.84-5.20); LYMPHOCYTES PERCENT AUTO 29 % (21-46); MONOCYTES ABSOLUTE AUTO 0.57 K/mm3 (0.16-1.47); MONOCYTES PERCENT AUTO 8 % (4-13); Mean Corpuscular HGB 30.3 pg (26.0-34.0); Mean Corpuscular HGB Conc 33.1 g/dL (31.5-36.5); Mean Corpuscular Volume 91 fL (80-100); Mean Platelet Volume 9.3 fL (9.1-12.4); NEUTROPHILS ABSOLUTE AUTO 4.43 K/mm3 (1.96-9.15); NEUTROPHILS PERCENT AUTO 59 % (41-73); Platelet Count 234 K/mm3 (150-400); RDW Coefficient Variation 12.6 % (11.7-14.2); RDW Standard Deviation 41.6 fL (35.1-46.3); Red Blood Cell Count 3.83 M/mm3 (3.80-5.20); White Blood Cell Count 7.54 K/mm3 (4.00-11.30)
[2020-06-07 07:07] LABS: Source, Urine Clean Catch
[2020-06-07 07:10] LABS: Appearance, Urine Clear (Clear); Bilirubin, Urine Neg (Neg); Blood, Urine Neg (Neg); Color, Urine Yellow (P-Yellow); Glucose Qualitative, Urine Neg (Neg); Ketones, Urine Neg (Neg); Leukocyte Esterase, Urine 2+ (Neg); Nitrite, Urine Neg (Neg); Protein, Urine Neg (Neg); Urobilinogen, Urine NORM (Normal)
[2020-06-07 07:18] LABS: Bacteria Rare /hpf; Red Blood Cells, Urine 0-2 /hpf (0-2); Squamous Epithelial Cells Few /hpf (Few)
[2020-06-07 07:19] LABS: Alanine Aminotransfer (ALT/SGP 17 U/L (12-78); Albumin, Blood 3.7 g/dL (3.4-5.0); Albumin/Globulin Ratio 1.1 (0.8-1.8); Alk Phos 79 U/L (50-136); Anion Gap 5 mmol/L (6-16); Aspartate Aminotrans (AST/SGOT 12 U/L (12-37); Bilirubin, Total 0.2 mg/dL (0.1-1.0); Blood Urea Nitrogen 10 mg/dL (8-24); CO2, Blood 27 mmol/L (21-32); Calcium, Blood 9.2 mg/dL (8.5-10.1); Chloride, Blood 105 mmol/L (98-108); Creatinine, Blood 0.67 mg/dL (0.40-1.00); Ethanol (Alcohol), Blood, Med <3 mg/dL; Globulin, Blood 3.3 g/dL (2.2-4.0); Glomerular Filtration Rate >60 (60-); Glucose, Blood 94 mg/dL (70-99); Potassium, Blood 4.2 mmol/L (3.5-5.5); Salicylate 2.2 mg/dL (2.8-20.0); Sodium, Blood 137 mmol/L (136-145)
[2020-06-07 07:23] LABS: U Amphetamine Screen Not Detected; U Barbituate Screen Not Detected; U Benzodiazapine Screen Not Detected; U Buprenorphine Screen Not Detected; U Cannabinoids Screen DETECTED; U Cocaine Screen Not Detected; U Methadone Screen Not Detected; U Methamphetamine Screen Not Detected; U Opiates Screen Not Detected; U Oxycodone Screen Not Detected; U Phencyclidine Screen Not Detected; U Propoxyphene Screen Not Detected
[2020-06-07 07:27] LABS: Acetaminophen, Random <2.0 ug/mL (10.0-30.0)
[2020-06-07] MEDS ORDERED: PANT40 PO (12:41)
[2020-06-07] MEDS ORDERED: LABE100 PO (12:41)
[2020-06-07] MEDS ORDERED: ALPR.25 PO (12:42)
--- NOTE | 2020-06-07 17:58 | NUR ---
SHIFT SUMMARY RECEIVED PATIENT FROM THE ED. PT IS CURRENTLY ON MODERATE SI PRECAUTIONS AND ON VIDEO MONITORING. PT IS A/O X4 AND TEARFUL. 1 ASSIST TO THE BATHROOM W/FWW. PERSONAL BELONGINGS LOCKED IN CLOSET; SI CHECKLIST COMPLETED. PT CURRENTLY RESTING IN BED. INSTRUCTED ON HOW TO USE THE SI CALL LIGHT.
[2020-06-08 05:13] LABS: Anion Gap 6 mmol/L (6-16); Blood Urea Nitrogen 16 mg/dL (8-24); Bun/Creatinine Ratio 22.4 (12.0-20.0); CO2, Blood 28 mmol/L (21-32); Chloride, Blood 104 mmol/L (98-108); Creatinine, Blood 0.72 mg/dL (0.40-1.00); Glomerular Filtration Rate >60 (60-); Glucose, Blood 94 mg/dL (70-99); Sodium, Blood 138 mmol/L (136-145)
--- NOTE | 2020-06-08 05:22 | NUR ---
SHIFT SUMMARY- PT. A&O, ON MODERATE SUICIDE PRECAUTIONS. VERY ANXIOUS AND TEARFUL LAST NIGHT. ALSO FIDGETING AND UNABLE TO CALM DOWN. SCHEDULED MEDS AND PRN XANAX GIVEN PER EMAR WITH GOOD EFFECT. PT. HAD FEW EPISODES OF WATERY YELLOW STOOLS. PER PT. THIS IS A CHRONIC ISSUE. PT. APPEARED TO HAVE RESTED COMFORTABLY IN BED THE REST OF THE NIGHT. NO APPARENT DISTRESS NOTED. DENIES ANY NEEDS, VSS. CALL LIGHT WITHIN REACH AND SIDE RAILS UPX2. WILL CONT TO MONITOR
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
--- NOTE | 2020-06-08 18:00 | NUR ---
SHIFT SUMMARY PATIENT ALERT AND ORIENTED. PATIENT CONTINUES TO BE ON SI PRECAUTIONS. PATIENT WORKED WITH PT THIS SHIFT. PATIENT CONTINUES TO TALK ABOUT SI AND HOW IT WOULD BE EASIER IF SHE WERE NOT HERE ANYMORE. PATIENT SPOKE WITH APS THIS AFTERNOON ON THE TELEPHONE. PATIENT CONTINUES TO BE ANXIOUS WHEN DISCUSSING HER DAUGHTER, FAMILY, OR CURRENT SITUATION. PATIENT LAYING IN BED RESTING MUCH OF THE REST OF THE SHIFT. PATIENT CURRENTLY SITTING UP IN BED EATING DINNER.
--- NOTE | 2020-06-09 05:46 | NUR ---
SHIFT SUMMARY- PT. SLEPT MOST OF THE NIGHT. EMOTIONAL AND ANXIOUS AT THE BEGINNING OF THE EVENING. MEDS GIVEN PER EMAR, TOLERATED WELL. HAD NO ACUTE CHANGES TO CONDITION. RESTING QUIETLY IN BED. CALL LIGHT WITHIN REACH AND SIDE RAILS UPX2. WILL CONT TO MONITOR.
[2020-06-09 05:49] LABS: Anion Gap 6 mmol/L (6-16); Blood Urea Nitrogen 19 mg/dL (8-24); Bun/Creatinine Ratio 27.3 (12.0-20.0); CO2, Blood 25 mmol/L (21-32); Calcium, Blood 9.1 mg/dL (8.5-10.1); Chloride, Blood 106 mmol/L (98-108); Glomerular Filtration Rate >60 (60-); Glucose, Blood 100 mg/dL (70-99); Potassium, Blood 3.7 mmol/L (3.5-5.5); Sodium, Blood 137 mmol/L (136-145)
--- NOTE | 2020-06-09 17:41 | NUR ---
SHIFT SUMMARY PATIENT ALERT AND ORIENTED, ANXIOUS, THIS SHIFT. PATIENT AWARE OF SITUATION AND SURROUNDINGS. PATIENT SEEN BY DR STORY THIS AFTERNOON. PLAN FOR PATIENT TO BE TRANFERED TO INPATIENT PSYCHIATRIC CARE BEING IMPLEMENTED. PATIENT AWARE OF THIS PLAN. PATIENT STATES ANXIETY OF TRANSFER. PATIENT PLACED ON DOCTOR HOLD BY DR STORY, PATIENT AWARE OF THIS AND AGREES THAT IT IS A GOOD IDEA. PATIENT WITHOUT NEEDS OTHER THAN BEING REASSURED THAT THE PLAN IS IN HER BEST INTEREST.
--- NOTE | 2020-06-09 21:14 | NUR ---
PT STATES SHE FEELS MUCH BETTER KNOWING SHE WILL GOING TO A PYCHIARTRIC FACILITY INSTEAD OF GOING BACK TO STAY WITH DAUGHTER.
--- NOTE | 2020-06-10 05:29 | NUR ---
PT A/O X4 WITH FORGETFULNESS. PT HAD SEVERAL LOOSE/LIQUID BM'S. PT STATES SHE'S BEEN HAVING DIAHERRIA FOR YEARS AND IT IS A CHRONIC ISSUE. PT STATES SHE FEELS BETTER KNOWING SHE WILL GO TO A FACILITY. SLEPT WELL NIGHT. BED ALARM ON, CALL LIGHT WITHIN REACH. NO ACUTE CHANGES, VSS.
[2020-06-10 06:17] LABS: Anion Gap 9 mmol/L (6-16); Blood Urea Nitrogen 17 mg/dL (8-24); Bun/Creatinine Ratio 21.4 (12.0-20.0); CO2, Blood 22 mmol/L (21-32); Calcium, Blood 9.5 mg/dL (8.5-10.1); Chloride, Blood 106 mmol/L (98-108); Creatinine, Blood 0.79 mg/dL (0.40-1.00); Glomerular Filtration Rate >60 (60-); Glucose, Blood 102 mg/dL (70-99); Sodium, Blood 137 mmol/L (136-145)
--- NOTE | 2020-06-10 16:35 | NUR ---
ALERT. ORIENTED, FORGETFUL. GETS ANXIOUS WHEN TALKING ABOUT DAUGHTER AND TRANSFERRING TO [facility]. COOPERATIVE WITH CARE. STOOL SAMPLE SENT FOR C-DIFF. HAS HAD DIARRHEA FOR YEARS PER PATIENT. PATIENT STS SHE CAN NOT SAY SHE WOULD NOT HURT HERSELF IF D'C HOME TO LIVE WITH DAUGHTER. UNLABORED RESPIRATIONS. WCTM
--- NOTE | 2020-06-11 05:08 | NUR ---
HR SPECIALIST SUMMARY PT A/O WITH FORGETFULNESS. PT EXPRESSED SHE IS SCARED TO GO HOME WITH DAUGHTER AND IS GLAD FOR THE IDEA OF GOING TO [facility] FACILITY. PT HAD MULTIPLE LIQUID BM'S TONIGHT. MEDICATED WITH IMODIUM. VSS. NO ACUTE CHANGES. CAMERA MONITORING IN PLACE.
[2020-06-11 06:24] LABS: Anion Gap 7 mmol/L (6-16); Blood Urea Nitrogen 19 mg/dL (8-24); Bun/Creatinine Ratio 21.4 (12.0-20.0); CO2, Blood 23 mmol/L (21-32); Calcium, Blood 9.4 mg/dL (8.5-10.1); Chloride, Blood 106 mmol/L (98-108); Creatinine, Blood 0.89 mg/dL (0.40-1.00); Glomerular Filtration Rate >60 (60-); Glucose, Blood 96 mg/dL (70-99); Potassium, Blood 4.1 mmol/L (3.5-5.5); Sodium, Blood 136 mmol/L (136-145)
--- NOTE | 2020-06-11 18:18 | NUR ---
ALERT. ORIENTED. FORGETFUL. EMOTIONAL AT TIMES. COOPERATIVE WITH CARE. DENIES; ANY PAIN OR SOB. UNLABORED RESPIRATIONS. AWARE WAITING FOR BED TO OPEN UP AT [facility].INDEPENDENT WITH BSC. WAS GOING TO WALK IN HALLWAY W/COURT LIAISON, BUT THEN GOT VERY EMOTIONAL AND DID NOT WANT TO. WCTM.
--- NOTE | 2020-06-11 20:07 | NUR ---
BED RESTING IN BED QUEITLY. PT STATES HER MIND IS HAZY AND SHE IS DOING "BETTER" TODAY. PT EXPRESSED TO NURSE SHE CHANGED HER MIND AND DOESN'T WANT TO GO TO THE PY FACILITY ANYMORE BECAUSE SHE STATES SHE WATCHED MOVIES ABOUT IT AND SHE DOESN'T WANT TO BE TREATED LIKE A "HUMAN RESOURCES PROFESSIONAL". PT FEARED THAT SHE WOULDN'T BE ABLE TO "COMPREHEND" THEM. PT STATES SHE DOES NOT FEEL SAFE GOING TO DAUGHTER'S HOME. PT SCARED ABOUT [facility] BECAUSE OF HOW THEY ARE PORTRAYED IN MOVIES. PT FELT BETTER ABOUT IT AFTER ABOUT TO NURSE.
--- NOTE | 2020-06-12 05:47 | NUR ---
maintenance technician 3rd shift summary pt a/o with forgetfulness. pt states she her mind feels "foggy at times". denies pain, sob. medicated once with immodium tonight for frequent diahrrhea. not thoughts of harming self since last asked. pt does not want to go back to live with daughter she expressed. no acute changes. camera monitor in place.
[2020-06-12 06:27] LABS: Anion Gap 9 mmol/L (6-16); Blood Urea Nitrogen 21 mg/dL (8-24); Bun/Creatinine Ratio 26.3 (12.0-20.0); CO2, Blood 22 mmol/L (21-32); Calcium, Blood 9.5 mg/dL (8.5-10.1); Chloride, Blood 103 mmol/L (98-108); Glomerular Filtration Rate >60 (60-); Glucose, Blood 96 mg/dL (70-99); Potassium, Blood 4.1 mmol/L (3.5-5.5); Sodium, Blood 134 mmol/L (136-145)
[2020-06-12] MEDS ORDERED: LASIX20 MG PO (10:33)
[2020-06-12] MEDS ORDERED: Klor-Con 1010 MEQ PO (10:34)
[2020-06-12] MEDS ORDERED: SODCHL1 PO (10:35)
--- NOTE | 2020-06-12 19:18 | NUR ---
SHIFT SUMMARY PT HAS BEEN COOPERATIVE WITH CARE. TEARFUL AT TIMES BUT SELF RESOLVES. INDEPENDENT TO BSC. COBRA TRANSFER ARRANGED TO [facility] WITH FAST FOOD CREW MEMBER AT 1930. BECAME QUITE ANXIOUS AFTER BEING NOTIFIED OF IMMIMENT DISCHARGE. ANTONIO GIVEN AND WALKED WITH PT IN HALLWAY WELL WORKED WITH HER ON DEEP BREATHING FOR CALMING. MORE CALM AT THIS TIME. REPORT GIVEN TO DESIRE WITH ASSURANCES GIVEN TO PT ABOUT IMPENDING TRANSFER. SPOKE WITH DAUGHTER ON PHONE PRIOR TO BEING NOTIFIED OF PT LEAVING. DAUGHTER REPORTS HER PHONE IS LOCKED IN HER CAR WITH THE CAR KEYS AND HOSPITAL HAS BEEN UNABLE TO CONTACT HER OTHER THAN WHEN DAUGHTER HAS CALLED HERE.
--- NOTE | 2020-06-12 19:20 | NUR ---
ASSUMED CARE. GARY IS VERY ANXIOUS ABOUT HER TRANSPORT AND HOW IT WOULD BE. SHE HAS SEVERAL QUESTIONS SUCH BATHROOM STOPS, IF SHE HAS AN ACCIDENT. IS SHE ALLOWED TO DRINK? INFORMED HER THAT WE WILL ASK THE AUTOMOTIVE SERVICE DIRECTOR WHEN THEY ARRIVE. SHE IS SHAKING, MOVING HER LEG UP AND DOWN. SHE CONTINUES TO STICK OUT HER TONGUE AND TALKS VERY FAST. STATES HER ANXIETY IS 10/10. JUST HELPED HER TO BREATH, WILL MEDICATE HER WITH HER NIGHT MEDS WHEN TRANSPORT ARRIVES. CALL LIGHT IS IN REACH, RISK ASSESSMENT DONE.
--- NOTE | 2020-06-12 19:45 | NUR ---
TRANSPORT ARRIVED. GAVE PAPERWORK TO HER FOR FACILITY AND TRANSPORT. PATIENT BELONGINGS OUT OF CABINET GIVEN. GAVE EXTRA ATTENDS AND PAPER CLOTHES JUST IN CASE SHE HAS AN ACCIDENT. ADMINISTERED NIGHT MEDS OTHER THEN MELATONIN AND SODIUM. PLACED HER IN WC WRAPPED IN BLANKET TO HELP WITH NERVES, AND TRANSPORT TOOK HER OUT AT 2000.
== END 2020-06-12 20:01 ==
LOC: ER 05:49 → EOR 05:50 → ER 05:50 → MEDS 05:50 → EOR 15:39 → ER 15:39 → MEDS 15:39
PROVIDERS: Family Medicine; ADMIT Emergency Medicine
DX: T42.4X2A Poisoning by benzodiazepines, intentional self-harm, initial encounter (principal); F31.4 Bipolar disorder, current episode depressed, severe, without psychotic features; F41.9 Anxiety disorder, unspecified; E22.2 Syndrome of inappropriate secretion of antidiuretic hormone; I10 Essential (primary) hypertension; J44.9 Chronic obstructive pulmonary disease, unspecified; R29.6 Repeated falls; F17.210 Nicotine dependence, cigarettes, uncomplicated; K21.9 Gastro-esophageal reflux disease without esophagitis; K52.9 Noninfective gastroenteritis and colitis, unspecified; Z90.710 Acquired absence of both cervix and uterus; Z90.49 Acquired absence of other specified parts of digestive tract; Z88.0 Allergy status to penicillin; Z88.1 Allergy status to other antibiotic agents; Z88.8 Allergy status to other drugs, medicaments and biological substances; Z91.040 Latex allergy status; Z79.82 Long term (current) use of aspirin; Z79.51 Long term (current) use of inhaled steroids; Z79.899 Other long term (current) drug therapy; Z20.828 Contact with and (suspected) exposure to other viral communicable diseases; Z23 Encounter for immunization
CPT/HCPCS: 36415; 80048; 80053; 81001; 82306; 84443; 85025; 87086; 87493; 92523; 94760; 96372; 97110; 97162; 97530; 99285; A9270; A9270-GY; G0378; G0480; J1650; Q3014; U0004

== ENCOUNTER 2020-12-08 22:19 | Observation (INO) | payer MEDICARE ==
[~2020-12-08] VITALS: Ht 160 cm; Wt 75.8 kg
[~2020-12-08 22:19] MED LIST changes: +ALPR.25 PO; +Klor-Con 1010 MEQ PO; +LASIX20 MG PO; +PANT40 PO
[2020-12-08] MEDS ORDERED: Mirtazapine45 M1 PO (22:50)
[2020-12-08] MEDS ORDERED: QUETIAPINE FUMA50 M5 PO (22:50)
[2020-12-08] MEDS ORDERED: ESCI10 PO (22:50)
[2020-12-08 23:17] LABS: Source, Urine Clean Catch
[2020-12-08 23:19] LABS: Bilirubin, Urine Neg (Neg); Blood, Urine 1+ (Neg); Glucose Qualitative, Urine Neg (Neg); Ketones, Urine Neg (Neg); Leukocyte Esterase, Urine 3+ (Neg); Nitrite, Urine Neg (Neg); Protein, Urine 2+ (Neg); Specific Gravity, Urine 1.015 (1.003-1.022); Urobilinogen, Urine NORM (Normal)
[2020-12-08 23:31] LABS: Appearance, Urine Clear (Clear); Color, Urine Yellow (P-Yellow)
[2020-12-08 23:32] LABS: Bacteria Many /hpf; Squamous Epithelial Cells Few /hpf (Few); White Blood Cells, Urine 50-100 /hpf (0-5)
[2020-12-08 23:45] LABS: U Amphetamine Screen Not Detected; U Barbituate Screen Not Detected; U Benzodiazapine Screen DETECTED; U Buprenorphine Screen Not Detected; U Cannabinoids Screen Not Detected; U Cocaine Screen Not Detected; U Methadone Screen Not Detected; U Methamphetamine Screen Not Detected; U Opiates Screen Not Detected; U Oxycodone Screen Not Detected; U Phencyclidine Screen Not Detected; U Propoxyphene Screen Not Detected
[2020-12-09 00:34] LABS: BASOPHILS ABSOLUTE AUTO 0.06 K/mm3 (0.00-0.23); BASOPHILS PERCENT AUTO 1 % (0-2); EOSINOPHILS ABSOLUTE AUTO 0.31 K/mm3 (0.00-0.68); EOSINOPHILS PERCENT AUTO 3 % (0-6); Hematocrit 39.7 % (33.0-51.0); Hemoglobin 13.4 g/dL (11.5-16.0); IMMATURE GRAN ABSOLUTE AUTO 0.03 K/mm3 (0.00-0.10); IMMATURE GRAN PERCENT AUTO 0 % (0-1); LYMPHOCYTES ABSOLUTE AUTO 3.21 K/mm3 (0.84-5.20); LYMPHOCYTES PERCENT AUTO 32 % (21-46); MONOCYTES ABSOLUTE AUTO 0.74 K/mm3 (0.16-1.47); MONOCYTES PERCENT AUTO 7 % (4-13); Mean Corpuscular HGB 30.3 pg (26.0-34.0); Mean Corpuscular HGB Conc 33.8 g/dL (31.5-36.5); Mean Corpuscular Volume 90 fL (80-100); Mean Platelet Volume 9.9 fL (9.1-12.4); NEUTROPHILS ABSOLUTE AUTO 5.64 K/mm3 (1.96-9.15); NEUTROPHILS PERCENT AUTO 57 % (41-73); Platelet Count 245 K/mm3 (150-400); RDW Coefficient Variation 14.1 % (11.7-14.2); RDW Standard Deviation 46.5 fL (35.1-46.3); Red Blood Cell Count 4.42 M/mm3 (3.80-5.20); White Blood Cell Count 9.99 K/mm3 (4.00-11.30)
[2020-12-09 00:53] LABS: Alanine Aminotransfer (ALT/SGP 17 U/L (12-78); Albumin, Blood 4.3 g/dL (3.4-5.0); Albumin/Globulin Ratio 1.3 (0.8-1.8); Alk Phos 97 U/L (50-136); Anion Gap 3 mmol/L (6-16); Aspartate Aminotrans (AST/SGOT 15 U/L (12-37); Bilirubin, Total 0.5 mg/dL (0.1-1.0); Blood Urea Nitrogen 23 mg/dL (8-24); CO2, Blood 28 mmol/L (21-32); Calcium, Blood 9.6 mg/dL (8.5-10.1); Chloride, Blood 102 mmol/L (98-108); Creatinine, Blood 0.89 mg/dL (0.40-1.00); Ethanol (Alcohol), Blood, Med <3 mg/dL; Globulin, Blood 3.4 g/dL (2.2-4.0); Glomerular Filtration Rate >60 (60-); Glucose, Blood 99 mg/dL (70-99); Salicylate 3.1 mg/dL (2.8-20.0); Sodium, Blood 133 mmol/L (136-145); Total Protein, Blood 7.7 g/dL (6.4-8.2)
[2020-12-09 00:54] LABS: Acetaminophen, Random <2.0 ug/mL (10.0-30.0)
[2020-12-09] MEDS ORDERED: AMLO5 PO (03:20)
[2020-12-09] MEDS ORDERED: ATOR20 PO (03:20)
[2020-12-09] MEDS ORDERED: PANT40 PO (03:24)
--- NOTE | 2020-12-09 05:45 | NUR ---
LITHOGRAPHY CONTACT WORKER SUMMARY PT ADMITTED TO FLOOR AROUND 0400. A/O X3 WITH FORGETFULNESS, ANXIETY AND PARANOIA. PT BROUGHT HER PURSE FROM HOME, PARANOID SOMEONE WILL TAKE IT. PT ADVISED HER BELONGINGS CAN BE PLACED IN THE SAFE IN SECURITY. SECURITY WAS ABLE TO TAKE A FEW OF HER PERSONAL BELONGINGS AND PUT THEM IN AN EVELOPE TO BE LOCKED UP. PT ALSO HAS HOME MEDS IN HER PURSE WHICH WAS SENT TO [facility] TO SECURE. PT EDUCATED ABOUT THIS. RECIEPT FOR PERSONAL BELONINGS IN PT'S CHART. PHARMACY STILL WORKING ON GETTING A RECIEPT FOR HOME MEDS. PT'S CIGGARETTS STORED IN LOCKED CUBBIE. PT LATER ON TOLD ME THAT SHE STILL HAS HER HOUSE KEYS IN HER PURSE. ADVISED PT TO ALSO KEEP THIS IS SECUIRTY SAFE. PT DECIDED TO KEEP IT IN HER PURSE. AMBULATES WITH 1 ASSIST WITH FWW. ROOM AIR MAINTAINING GOOD 02 SATS. CALL LIGHT WITHIN REACH, BED ALARM ON.
--- NOTE | 2020-12-09 11:41 | NUR ---
PARANOIA/INCREASE IN AGITATION. PT WOKE UP FROM A NAP IN A MORE AGITATED AND EXTREMELY PARANOID STATE. PT STATES SHE DOES NOT TRUST THIS RN OR ANY OF OUR STAFF. PT STATES SHE IS LEAVING. THEN STARTS CRYING THAT HER DAUGHTER DOESNT CARE FOR HER AT HOME. PT REMINDED THAT DR. CAT SAW HER THIS AM AND WANTS HER TO STAY OVER THE WEEKEND. PT STATES THAT NEVER HAPPENED. PT PARANOID THAT HER FLUID IS NOT RUNNING, BECAUSE SHE CANNOT SEE OR HEAR IT. PT SHOWN HOW THE PUMP WORKS AND ENSURED THAT IT IS RUNNING. DR. CAT CALLED & NOTIFIED. STATED SHE WILL COME BACK UP AND SEE THE PT. ONE TIME 25MG TAB OF SEROQUEL ORDERED PER DR. CAT.
[2020-12-09 12:51] LABS: BASOPHILS ABSOLUTE AUTO 0.05 K/mm3 (0.00-0.23); BASOPHILS PERCENT AUTO 1 % (0-2); EOSINOPHILS ABSOLUTE AUTO 0.21 K/mm3 (0.00-0.68); EOSINOPHILS PERCENT AUTO 3 % (0-6); Hematocrit 34.2 % (33.0-51.0); Hemoglobin 11.7 g/dL (11.5-16.0); IMMATURE GRAN ABSOLUTE AUTO 0.03 K/mm3 (0.00-0.10); IMMATURE GRAN PERCENT AUTO 0 % (0-1); LYMPHOCYTES ABSOLUTE AUTO 2.05 K/mm3 (0.84-5.20); LYMPHOCYTES PERCENT AUTO 25 % (21-46); MONOCYTES ABSOLUTE AUTO 0.68 K/mm3 (0.16-1.47); MONOCYTES PERCENT AUTO 8 % (4-13); Mean Corpuscular HGB 30.2 pg (26.0-34.0); Mean Corpuscular HGB Conc 34.2 g/dL (31.5-36.5); Mean Corpuscular Volume 88 fL (80-100); Mean Platelet Volume 9.9 fL (9.1-12.4); NEUTROPHILS ABSOLUTE AUTO 5.05 K/mm3 (1.96-9.15); NEUTROPHILS PERCENT AUTO 63 % (41-73); Platelet Count 188 K/mm3 (150-400); RDW Standard Deviation 45.5 fL (35.1-46.3); Red Blood Cell Count 3.87 M/mm3 (3.80-5.20); White Blood Cell Count 8.07 K/mm3 (4.00-11.30)
[2020-12-09 13:19] LABS: Alanine Aminotransfer (ALT/SGP 17 U/L (12-78); Albumin, Blood 3.8 g/dL (3.4-5.0); Albumin/Globulin Ratio 1.4 (0.8-1.8); Alk Phos 84 U/L (50-136); Anion Gap 8 mmol/L (6-16); Aspartate Aminotrans (AST/SGOT 17 U/L (12-37); Bilirubin, Total 0.4 mg/dL (0.1-1.0); Blood Urea Nitrogen 17 mg/dL (8-24); Bun/Creatinine Ratio 25.2 (12.0-20.0); CO2, Blood 21 mmol/L (21-32); Calcium, Blood 8.8 mg/dL (8.5-10.1); Chloride, Blood 105 mmol/L (98-108); Creatinine, Blood 0.68 mg/dL (0.40-1.00); Globulin, Blood 2.8 g/dL (2.2-4.0); Glomerular Filtration Rate >60 (60-); Glucose, Blood 95 mg/dL (70-99); Potassium, Blood 4.1 mmol/L (3.5-5.5); Sodium, Blood 134 mmol/L (136-145); Total Protein, Blood 6.6 g/dL (6.4-8.2)
--- NOTE | 2020-12-09 13:45 | NUR ---
PT TRYING TO LEAVE. PT NOW TRANSITIONED TO A 2MD HOLD. PT TRYING TO LEAVE. PARANOIA PERSISTS DISPITE CONVERSATION WITH DR CAT AND THIS RN REPEATEDLY. DR. CAT ORDERED TO GIVE 1MG OF ATIVAN NOW. THIS WAS GIVEN AFTER THE PT PHYSICALLY TRIED TO LEAVE THE FACILITY WITH HER IV POLE. PT TALKED DOWN BY PRINCIPAL SYSTEMS ENGINEER, FREDDY AND GIVEN ATIVAN AT THIS TIME.
--- NOTE | 2020-12-09 13:46 | NUR ---
PROVIDER ORDER FOR SEROQUEL CLARIFIED. DR. CAT GAVE A TELEPHONE ORDER TO GIVE A ONE TIME SEROQUEL 25MG PO AT 1140. PT DROPPED THIS PILL AND A NEW ONE TIME ORDER WAS PLACED FOR THE SAME THING. BOTH ORDERS WERE ORDERED BY DR. WINSTON CAT, NOT MIKAL CAT. ONE DOSE OF SEROQUEL WAS GIVEN THE OTHER WAS A DUPLICATE ORDER.
--- NOTE | 2020-12-09 17:47 | NUR ---
SHIFT SUMMARY PATIENT ALERT AND ORIENTATED X1 TO SELF. PATIENT IS CONFUSED AND CALLS OUT FREQUENTLY FOR NEEDS. PATIENT IS A 1 PERSON ASSIST BETWEEN BED AND CHAIR. PATIENT HAS ABULATED WITH MINIMAL ASSISTANCE USING GAIT BELT AND WALKER 2X BETWEEN ROOM AND END OF HALLWAY WINDOW. PATIENT DOES NOT COMPLAIN OF BEING SOB, NAUSEA, AND VOMITTING. PATIENT IS ANXIOUS AND PARANOID. PATIENT HAS HAD LOOSE STOOL DURING SHIFT VITAL SIGNS REVIEWED.
--- NOTE | 2020-12-09 18:47 | NUR ---
STUDENT DOC REVIEW THIS RN ASSESSED THE PT. THIS RN REVIEWED & AGREES WITH BRAZING FURNACE FEEDER'S ASSESSMENT/DOCUMENTION FOR THIS SHIFT.
--- NOTE | 2020-12-10 04:18 | NUR ---
BYPRODUCTS OPERATOR SUMMARY PT A/O X2 WITH FORGETFULNESS AND CONFUSION. PT HAS SLEPT MOST OF THE SHIFT. PT IS VERY PARANIOD AND WHENEVER PT WAKES UP, PT WOULD MOAN AND ROCK BACK AND FORTH IN BED DUE TO PARANOIA. DENIES PAIN, SOB, NAUSEA. AMBULATES WITH SBA WITH FWW. CALL LIGHT WITHIN REACH, BED ALARM ON. VSS. WILL CONTINUE TO MONITOR.
--- NOTE | 2020-12-10 15:07 | NUR ---
CONVERSATION WITH PTS DAUGHTER PT'S DAUGHTER, KAMERON, CAME IN TO SEE THE PT AND WAS STOPPED AT THE NURSES STATION. THIS RN WENT OUT TO EXPLAIN THAT THE PT WILL NOT BE HAVING A VISIT TODAY. APS IS INVOLVED THAT THE PT IS NOT SAFE AT HOME WITH HER DAUGHTER. KAMERON ASKED MANY QUESTIONS ABOUT THE PTS OVERALL HEALTH & MENTAL HEALTH. MINIMAL INFO WAS RELEASED TO KAMERON, INCLUDING THAT WE ARE TREATING HER UTI. PTS DAUGHTER ASKED "DO YOU GUYS REALLY BELIEVE EVERYTHING SHE IS SAYING ABOUT ME" AND STATED TO "WRITE DOWN THAT NONE OF IT IS TRUE" IN REGARDS TO HITTING THE PT OR DOING DRUGS. KAMERON GAVE THIS RN A BAG WITH CLEAN CLOTHES AND DEODORANT TO GIVE TO THE PT. THE BAG WAS SEARCHED BY THIS RN PRIOR TO ENTERING THE PT ROOM. THE ONLY BELONGINGS IN THE BAG WERE CLOTHES, DEODORANT, AND A COMB.
--- NOTE | 2020-12-10 16:57 | NUR ---
SHIFT SUMMARY PT CONTINUES TO BE PARANOID, BUT THIS IS GREATLY IMPROVED FROM DAY SHIFT YESTERDAY. PT PACES IN ROOM AND ROCKS IN PLACE WHEN SEATED CONSTANTLY. THIS RN WAS ABLE TO CONVERSATE MORE WITH PT TODAY WITHOUT PT GETTING OVERLY PARANOID OF SCARED. PT HAS AMBULATED THE HALLWAY WITH STAFF PRESENT MULTIPLE TIMES TODAY. PRN ATIVAN REQUIRED TWICE TODAY WHEN PARANOIA INCREASED & PT BECAME VERY DIFFICULT TO CONSULE/COMMUNICATE. 2MD HOLD IN PLACE. THIS RN SPOKE WITH PTS DAUGHTER. SEE PREVIOUS NOTE. NO OTHER ACUTE CHANGES IN ASSESSMENT AT THIS TIME. VS REVIEWED. PT CURRENTLY SITTING ON SIDE OF BED, ROCKING IN PLACE. COLORING PAGES AND BEVERAGES ON BEDSIDE TABLE TO HELP WITH DISTRACTION.
--- NOTE | 2020-12-11 04:56 | NUR ---
CONTROL CHEMIST SUMMARY PT A/O X3 WITH FORGETFULNESS AND CONFUSION. SLEPT WELL TONIGHT. CONTINUES TO BE PARANOID BUT LESS TONIGHT. AMBULATES WITH STANDBY ASSIST WITH FWW TO THE BATHROOM. CALL LIGHT WITHIN REACH, BED ALARM ON. WILL CONTINUE TO MONITOR.
[2020-12-11 05:35] LABS: Anion Gap 7 mmol/L (6-16); Blood Urea Nitrogen 16 mg/dL (8-24); Bun/Creatinine Ratio 24.8 (12.0-20.0); CO2, Blood 26 mmol/L (21-32); Calcium, Blood 9.3 mg/dL (8.5-10.1); Chloride, Blood 96 mmol/L (98-108); Creatinine, Blood 0.65 mg/dL (0.40-1.00); Glomerular Filtration Rate >60 (60-); Glucose, Blood 95 mg/dL (70-99); Potassium, Blood 3.7 mmol/L (3.5-5.5); Sodium, Blood 129 mmol/L (136-145)
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
--- NOTE | 2020-12-11 14:22 | NUR ---
RE-SENT FACE SHEET TO ER FOR PORSHA PATHAK
--- NOTE | 2020-12-11 17:37 | NUR ---
SHIFT SUMMARY GARY WAS TEARFUL AND ANXIOUS THIS SHIFT. GOT IV ATIVAN WHICH SEEMED TO HELP. ATTEMPTED TO LEAVE THE FLOOR X1 AND MADE IT OUT OF THE SCU DOORS BUT WAS FINALLY ABLE TO BE REDIRECTED. PLACED ON 1.2 L FLUID RESTRICTION THIS EVENING. DR STORY IN ROOM SEEING PT AT THE MOMENT. MOSTLY ORIENTED BUT PARANOID AND FORGETFUL. DENIED PAIN. TOOK MEDS PRESCRIBED. SBA TO BR, BED ALARM ON. CALL LIGHT IN REACH, [facility]
--- NOTE | 2020-12-12 05:04 | NUR ---
SENIOR HR BUSINESS PARTNER SUMMARY PT AAOX3, MAKES NEEDS KNOWN AND IS MOSTLY PLEASANT. PT ATTEMPTS TO GET OOB WITHOUT ASSISTANCE AT TIMES. PT STATES SHE UNDERSTANDS SHE SHE CALL FOR ASSISTANCE BEFORE GETTING UP BUT DOES NOT ACTUALLY FOLLOW THROUGH. VERY ANXIOUS AT TIMES, MEDICATED WITH IV ATIVAN X1 THIS SHIFT. PT HAS SLEPT FAIRLY WELL WITH SCHEDULED MEDS AND ATIVAN PRN. FREQUENT URINATION THROUGH THE NIGHT BUT PT DENIES PAIN WHEN URINATING. VSS, WILL CONTINUE TO MONITOR.
[2020-12-12 05:35] LABS: BASOPHILS ABSOLUTE AUTO 0.04 K/mm3 (0.00-0.23); BASOPHILS PERCENT AUTO 1 % (0-2); EOSINOPHILS ABSOLUTE AUTO 0.24 K/mm3 (0.00-0.68); EOSINOPHILS PERCENT AUTO 4 % (0-6); Hematocrit 35.6 % (33.0-51.0); Hemoglobin 12.3 g/dL (11.5-16.0); IMMATURE GRAN ABSOLUTE AUTO 0.02 K/mm3 (0.00-0.10); IMMATURE GRAN PERCENT AUTO 0 % (0-1); LYMPHOCYTES ABSOLUTE AUTO 2.05 K/mm3 (0.84-5.20); LYMPHOCYTES PERCENT AUTO 36 % (21-46); MONOCYTES ABSOLUTE AUTO 0.55 K/mm3 (0.16-1.47); MONOCYTES PERCENT AUTO 10 % (4-13); Mean Corpuscular HGB 29.9 pg (26.0-34.0); Mean Corpuscular HGB Conc 34.6 g/dL (31.5-36.5); Mean Corpuscular Volume 86 fL (80-100); Mean Platelet Volume 10.2 fL (9.1-12.4); NEUTROPHILS ABSOLUTE AUTO 2.74 K/mm3 (1.96-9.15); NEUTROPHILS PERCENT AUTO 49 % (41-73); Platelet Count 210 K/mm3 (150-400); RDW Coefficient Variation 13.5 % (11.7-14.2); Red Blood Cell Count 4.12 M/mm3 (3.80-5.20); White Blood Cell Count 5.64 K/mm3 (4.00-11.30)
[2020-12-12 05:57] LABS: Anion Gap 7 mmol/L (6-16); Blood Urea Nitrogen 17 mg/dL (8-24); Bun/Creatinine Ratio 21.3 (12.0-20.0); CO2, Blood 26 mmol/L (21-32); Calcium, Blood 9.1 mg/dL (8.5-10.1); Chloride, Blood 95 mmol/L (98-108); Glomerular Filtration Rate >60 (60-); Glucose, Blood 92 mg/dL (70-99); Potassium, Blood 3.5 mmol/L (3.5-5.5); Sodium, Blood 128 mmol/L (136-145)
--- NOTE | 2020-12-12 14:42 | NUR ---
12/12/20-PER CHART REVIEW WITH DR. HAYS, DR. STORY HAD SEEN THE PT YESTERDAY AND IT WAS FOUND THE PT NEEDS TO BE IN PSYCHIATRIC HOSPITAL. CREATED PACKETS AND FAXED TO THE FOLLOWING FACILITIES: [facility] (ADULT) F: [phone] RECEIVED CALL BACK AND THEY DO NOT DO [facility]. [facility] (ADULTS WITH DUAL DX) F: [phone] RECEIVED MESSAGE THAT THEY DO NOT DO [facility]. [facility] [place]), [place] F: [phone] [facility] (ADULT), [place] F: [phone] [facility] (ADULT & [facility]), [place] F: [phone] [facility] (ADULT), [place] F: [phone] RECEIVED CALL BACK, THEY DO NOT PROVIDE [facility]. [facility] [place], F: [phone] [facility] (ADULT)[facility], F: [phone] [facility]; F: [phone] [facility]; F: [phone] - KJW
--- NOTE | 2020-12-12 19:25 | NUR ---
SHIFT SUMMARY PT IN ROOM MOST OF DAY BUT OCC WOULD COME OUT AND TAKE A WALK WITH FWW. BECAME ANXIOUS THIS AFTERNOON WHEN DAUGHTER AT BEDSIDE ASKING ABOUT HER MEDS. UPSET THAT LORAZEPAM STOPPED AND SEROQUEL STARTED FOR ANXIETY. COULDN'T SEEM TO UNDERSTAND THAT IT WAS ORDERED FOR ANXIETY. UP IN CHAIR MOST OF EVENING PRIOR TO SUPPER.
--- NOTE | 2020-12-13 04:43 | NUR ---
SHIFT SUMMARY PT HAS BEEN ANXIOUS THROUGHOUT THE NIGHT. ONLY SLEEPING FOR A COUPLE HOURS THIS EVENING. PT FIDGETS AROUND IN THE BED, SETTING OFF THE BED ALARM FREQUENTLY. PT HAVING A DIFFICULT TIME SITTING STILL AND REMAINING IN THE BED OR CHAIR. PT COMPLAINED OF CHRONIC BACK PAIN. MEDICATED X 1 W/ TYLENOL. PT DECLINED A HEATING PAD. PT HAD A DIFFICULT TIME WITH HER FLUID RESTRICTION. TELLING STAFF THAT WE WERE STARVING HER OF WATER. ATTEMPTING TO SNEAK WATER FROM BATHROOM SINK WHEN USING THE RESTROOM. PT PARANOID OF STAFF. TELLING THIS RN THAT SHE DOESN'T BELIEVE THAT I AM GIVING HER THE MEDICATIONS I TELL HER I AM. PT STATING THIS EVENING, "I NEED TO GO HOME". VITAL SIGNS STABLE. WILL CONTINUE TO MONITOR.
[2020-12-13 10:11] LABS: Anion Gap 10 mmol/L (6-16); Blood Urea Nitrogen 17 mg/dL (8-24); Bun/Creatinine Ratio 18.8 (12.0-20.0); CO2, Blood 23 mmol/L (21-32); Chloride, Blood 97 mmol/L (98-108); Glomerular Filtration Rate >60 (60-); Glucose, Blood 126 mg/dL (70-99); Potassium, Blood 3.8 mmol/L (3.5-5.5); Sodium, Blood 130 mmol/L (136-145)
--- NOTE | 2020-12-13 15:20 | NUR ---
spoke to dr bennett, orders for seroquel po 50 mg q4 prn. 100 mg bedtime.
--- NOTE | 2020-12-13 17:09 | NUR ---
PT HAS BEEN AT HALLWAY MAIN DOOR TRYING TO GET OUT MOST OF DAY. VERY RARELY WILL NOT BE AT HALLWAY DOOR. I HAVE BEEN ABLE TO ENCOURAGE HER TO SIT IN A CHAIR BY ME AT [place], BUT STILL AGITATED, ANX TO GO. SOMETIMES WILL STAY FOR 5 MIN AT A TIME MAX. OFTEN WILL PUSH TO TRY TO GO INTO OTHER PT ROOMS. SPOKE TO DR ACUNA. HE INCREASING HER SEROQUEL. SHE SUPPOSED TO BE ON FLUID RESTRICTION, BUT HAS BEEN OBSERVED SCOUPING WATER OUT OF SINK INTO HANDS TO DRINK WHEN MAKES TRIPS TO BATHROOM. LAST DOSE SEROQUEL DOES NOT SEEM TO HAVE HELPED MUCH YET. SHE TRYING TO GET IN TO OTHER ROOM AT THIS TIME. PT IN [place] AT THIS TIME.
--- NOTE | 2020-12-14 04:35 | NUR ---
SHIFT SUMMARY ALERT. NEEDS MULTIPLE REMINDERS AND RE-DIRECTING. VERY PARANOID ABOUT WHAT IS HAPPENING WITH OTHER PATIENTS. VERY ANXIOUS/RESTLESS. DIFFICULTY GETTING HER TO TAKE HER MEDICATIONS. MINIMAL SLEEPING; A COUPLE OF HOURS IF THAT. C/O PAIN/DISCOMFORT TO KNEES; MEDICATED PER EMAR. NO OTHER ACUTE CHANGES NOTED. CALL LIGHT AND BELONGINGS WITHIN REACH. BED IN LOWEST POSITION. CONTINUE WITH CURRENT PLAN OF CARE. REPORT TO ONCOMING RN.
[2020-12-14 08:49] LABS: Anion Gap 7 mmol/L (6-16); Blood Urea Nitrogen 17 mg/dL (8-24); CO2, Blood 25 mmol/L (21-32); Calcium, Blood 9.4 mg/dL (8.5-10.1); Chloride, Blood 95 mmol/L (98-108); Glomerular Filtration Rate >60 (60-); Glucose, Blood 115 mg/dL (70-99); Potassium, Blood 3.6 mmol/L (3.5-5.5); Sodium, Blood 127 mmol/L (136-145)
--- NOTE | 2020-12-14 15:35 | NUR ---
12/14/20- waiting to hear back for facilities that referral was faxed to. Will update below.-sparklew12/13/20- waiting to hear back from facilities that referrals were faxed to. Will document below. -sparklew
--- NOTE | 2020-12-14 19:41 | NUR ---
SHIFT SUMMARY: PATIENT A&O; OCC IRRITABLE; UNCOOPERATIVE WITH CARE IN AM; MEDS GIVEN FOR AGITATION; PT WAS IN LANDY VEST & BILATERAL SOFT WRIST RESTRAINTS FOR APPROX 9 HOURS THIS SHIFT; PT COOPERATIVE WITH CARE AT END OF SHIFT. 2-MD HOLD CONTINUING; DR ACUNA FOLLOWING-RECOMMENDING INPATIENT PSYCH FACILITY. REPORT GIVEN TO ONCOMING RN.
--- NOTE | 2020-12-15 05:04 | NUR ---
SHIFT SUMMARY ALERT, ABLE TO MAKE NEEDS KNOWN. COOPERATIVE WITH CARE. INDEPENDENT IN ROOM AND CALL SYSTEM. CONTINUES TO HAVE INTERMITTENT CONFUSION. PARANOIA MUCH IMPROVED. APPEARS TO BE FOLLOWING DIRECTIONS AND MORE DIRECTABLE THIS SHIFT. DID REST MUCH MORE THIS SHIFT VERSUS LAST; ABOUT 3-4 HOURS. PRIOR TO REST; RUMMAGED THROUGH BELONGINGS FOR ABOUT 2-3 HOURS AND RESTED IN BED WATCHING TV. VSS/AFEBRILE; REMAINS SLIGHTY TACHYCARDIC. NO OTHER ACUTE CHANGES NOTED. BED REMAINS IN LOWEST POSITION. CALL LIGHT AND BELONGINGS WITHIN REACH. CONTINUE WITH CURRENT PLAN OF CARE. REPORT TO ONCOMING RN.
[2020-12-15 07:29] LABS: BASOPHILS ABSOLUTE AUTO 0.05 K/mm3 (0.00-0.23); BASOPHILS PERCENT AUTO 1 % (0-2); EOSINOPHILS ABSOLUTE AUTO 0.27 K/mm3 (0.00-0.68); EOSINOPHILS PERCENT AUTO 4 % (0-6); Hematocrit 35.9 % (33.0-51.0); Hemoglobin 12.3 g/dL (11.5-16.0); IMMATURE GRAN ABSOLUTE AUTO 0.03 K/mm3 (0.00-0.10); IMMATURE GRAN PERCENT AUTO 0 % (0-1); LYMPHOCYTES ABSOLUTE AUTO 2.18 K/mm3 (0.84-5.20); LYMPHOCYTES PERCENT AUTO 29 % (21-46); MONOCYTES ABSOLUTE AUTO 0.62 K/mm3 (0.16-1.47); MONOCYTES PERCENT AUTO 8 % (4-13); Mean Corpuscular HGB 30.1 pg (26.0-34.0); Mean Corpuscular HGB Conc 34.3 g/dL (31.5-36.5); Mean Corpuscular Volume 88 fL (80-100); Mean Platelet Volume 10.4 fL (9.1-12.4); NEUTROPHILS ABSOLUTE AUTO 4.26 K/mm3 (1.96-9.15); NEUTROPHILS PERCENT AUTO 58 % (41-73); Platelet Count 231 K/mm3 (150-400); RDW Coefficient Variation 13.9 % (11.7-14.2); Red Blood Cell Count 4.08 M/mm3 (3.80-5.20); White Blood Cell Count 7.41 K/mm3 (4.00-11.30)
[2020-12-15 07:50] LABS: Bun/Creatinine Ratio 24.4 (12.0-20.0); Calcium, Blood 9.2 mg/dL (8.5-10.1); Creatinine, Blood 0.98 mg/dL (0.40-1.00); Potassium, Blood 3.5 mmol/L (3.5-5.5)
--- NOTE | 2020-12-15 15:03 | NUR ---
12/15/20- waiting for placement in [facility]. -nicholas
--- NOTE | 2020-12-15 17:36 | NUR ---
BLADDER SCAN & RESULTS: PER NEPHROLOGY (DR CHOUDHURY) BLADDER SCAN ORDERED; AVD=[id number]; DR NOTIFIED; NO NEW ORDERS. WCTM.
--- NOTE | 2020-12-15 19:35 | NUR ---
SHIFT SUMMARY: NO ACUTE EVENTS TO REPORT THIS SHIFT. PT A&O; PARANOID; ANXIOUS; COOPERATIVE WITH CARE. ANXIOLYTICS PER EMAR; DR ACUNA FOLLOWING; 2-MD HOLD THIS SHIFT. AWAITING D/C TO INPATIENT PSYCH FACILITY. REPORT GIVEN TO ONCOMING RN.
--- NOTE | 2020-12-16 03:51 | NUR ---
SHIFT SUMMARY A/O 2-3, PT APPEARS ANXIOUS AND PARANOID. CONTINUES TO PACE IN ROOM AND HALLWAY. SLEPT T/O THE NIGHT. DENIES PAIN OR SOB. VSS, NO ACUTE CHANGES AT THIS TIME. BED IN LOWEST POSITION WITH CALL LIGHT IN REACH. WILL CONTINUE TO MONITOR AND REPORT TO ONCOMING RN.
[2020-12-16 04:43] LABS: BASOPHILS ABSOLUTE AUTO 0.07 K/mm3 (0.00-0.23); BASOPHILS PERCENT AUTO 1 % (0-2); EOSINOPHILS ABSOLUTE AUTO 0.25 K/mm3 (0.00-0.68); EOSINOPHILS PERCENT AUTO 3 % (0-6); IMMATURE GRAN ABSOLUTE AUTO 0.03 K/mm3 (0.00-0.10); IMMATURE GRAN PERCENT AUTO 0 % (0-1); LYMPHOCYTES PERCENT AUTO 30 % (21-46); MONOCYTES ABSOLUTE AUTO 0.73 K/mm3 (0.16-1.47); MONOCYTES PERCENT AUTO 10 % (4-13); Mean Corpuscular HGB 30.2 pg (26.0-34.0); Mean Corpuscular HGB Conc 34.3 g/dL (31.5-36.5); Mean Corpuscular Volume 88 fL (80-100); Mean Platelet Volume 9.8 fL (9.1-12.4); NEUTROPHILS ABSOLUTE AUTO 4.09 K/mm3 (1.96-9.15); NEUTROPHILS PERCENT AUTO 56 % (41-73); Platelet Count 205 K/mm3 (150-400); RDW Standard Deviation 45.4 fL (35.1-46.3); Red Blood Cell Count 3.97 M/mm3 (3.80-5.20); White Blood Cell Count 7.37 K/mm3 (4.00-11.30)
[2020-12-16 05:12] LABS: Anion Gap 9 mmol/L (6-16); Blood Urea Nitrogen 30 mg/dL (8-24); CO2, Blood 22 mmol/L (21-32); Calcium, Blood 9.1 mg/dL (8.5-10.1); Chloride, Blood 104 mmol/L (98-108); Glomerular Filtration Rate 57 (60-); Glucose, Blood 87 mg/dL (70-99); Magnesium, Blood 1.4 mg/dL (1.6-2.4); Phosphorus, Blood 4.3 mg/dL (2.5-4.9); Potassium, Blood 3.5 mmol/L (3.5-5.5); Sodium, Blood 135 mmol/L (136-145)
[2020-12-16 05:13] LABS: Osmolality, Serum 287 mos/KG (275-300)
--- NOTE | 2020-12-16 08:52 | NUR ---
PT ATTEMPTING TO LEAVE THIS AM, SHE FEELS UNSAFE IN HER ROOM AND FEELS LIKE STAFF ARE TRYING TO HARM HER AND PUT THINGS IN HER DRINKS. PT WAS ABLE TO READ DIRECTIONS TO OPEN DOOR IN SCU AND AMBULATE OUT IN THE HALLS. PT IS NOT REDIRECTIBLE. PT REFUSING MEDICATIONS. BEDSIDE NURSE CALLED AND SPOKE WITH DR CAR WHO REQUESTED AT THAT TIME TO CALL DR STORY. SHE ATTEMPTED DR STORY BUT HE IS NOT ON TODAY. CALLED AND SPOKE WITH CRISIS NURSE IN ED DUE TO PT'S 2MD HOLD BEING UP YESERTDAY. PER CRISIS NURSE THE 2MD HOLD , THERE IS NO 14 DAY DIVERSION THAT WE CANNOT HOLD PT. CALLED AND SPOKE WITH DAUGHTER WHO WAS WILLING TO COME IN TO TALK WITH PT. SECURITY WELL NURSING VIBRATORY PILE DRIVER WITH PT PT MADE HER WAY DOWN TO 2ND FLOOR LOBBY VIA ELEVATOR. PT SAT IN LOBBY UNTIL DAUGHTER ARRIVED, DR CAR ALSO CAME AND SPOKE WITH BOTH PT AND DAUGHTER. PT DID AGREE TO TAKE HER PRN ZYPREXA, CITALOPRAM AND NITCOTINE PATCH. PT CONTINUES TO REFUSE TO COME BACK UP TO 3RD FLOOR AND REQUESTING TO GO HOME WITH DAUGHTER. DAUGHTER REMAINS SITTING WITH PT ON 2ND FLOOR LOBBY AND AGREED TO STAY WITH PT AND TRY TO GET PT BACK UP TO THIRD FLOOR. PHONE NUMBER FOR 3RD FLOOR GIVEN TO DAUGHTER. SPENT OVER AN HOUR WITH PT. PT WAS NOT COMBATIVE BUT PUSHY AT TIMES.
--- NOTE | 2020-12-16 09:01 | NUR ---
ARRIVED TO UNIT TO RESUME CARE OF PT, PT STATING SHE WOULD LIKE TO LEAVE AND LEAVING THE SCU TO WONDER HALLS. REFUSING TO COME BACK TO HER ROOM. SECURITY CALLED AND AT PT SIDE T/O THIS TIME. 2 MD HOLD YESTERDAY. CALLED JOSEP TO DISCUSS OPTIONS, ATTEMPTED TO CALL [facility], NO ANSWER & MESSAGE LEFT. CHARGE DISCUSSED WITH CRISIS NURSE OPTIONS WELL, LEGALLY CANNOT HOLD PT. PT REFUSED VS AND MEDS AT THIS TIME. DAUGHTER CALLED AND CAME TO HOSPITAL, PT IS CURRENTLY SITTING WITH DR CAR AND DAUGHTER ON SECOND FLOOR, PT REFUSES TO COME BACK TO HER ROOM STILL. PT IS NOT IN MY CARE AT THIS TIME.
--- NOTE | 2020-12-16 10:58 | NUR ---
PT RETURNED TO ROOM @ APPROX 1000 c DAUGHTER @ BEDSIDE. PT STATES SHE IS FEELING MORE CALM AT THIS TIME AND HER ANXIETY AND BIPOLAR GOT AWAY FROM HER. SHE STATED SHE WANTED TO APOLOGIZE TO STAFF. COOPERATIVE c CARE @ THIS TIME, ALLOWED VS TO BE TAKEN. PT IS CURRENTLY SITTING ON EDGE OF BED.
--- NOTE | 2020-12-16 17:04 | NUR ---
SHIFT SUMMARY NO ACUTE CHANGES SINCE ARRIVAL BACK TO UNIT THIS AM. PT HAS REMAINED CALM AND COOPERATIVE c CARE T/O REMAINING OF SHIFT. KEEPING UP ON PRN ZYPREXA. TOOK ALL SCHEDULED MEDS. PT WAS ABLE TO REST AND TAKE A NAP. SHE DENIES ANY DISTRESS AND IS CURRENTLY LYING IN BED, STATES SHE IS VERY TIRED FROM THIS AM. CALL LIGHT IS WITHIN REACH, INDEPENDENT IN THE ROOM. NO TALK OF WANTING TO LEAVE OR WANDERING THE HALLS SINCE COMING BACK TO HER ROOM.
--- NOTE | 2020-12-16 19:33 | NUR ---
BP 87/51. Legs elevated. Will recheck BP in a while. Asymptomatic. Call light in each
--- NOTE | 2020-12-17 04:04 | NUR ---
SOLID FIBER PASTER OPERATOR SUMMARY PT A/Ox4. NO ACUTE CHANGES, NO APPARENT DISTRESS. SLEPT T/O MOST OF SHIFT. INDEPENDENT IN ROOM. 24 HOUR URINE BEING COLLECTED. PT WAS HYPOTENSIVE AT BEGINNING OF SHIFT, VITAL SIGNS NOW STABLE. PT COOPERATIVE, MINIMAL ANXIETY. WILL CONTINUE TO MONITOR.
--- NOTE | 2020-12-17 04:20 | NUR ---
I AGREE WITH DOCUMENTATION PEARL RUSH STUDENT NURSE. KEREN DÍAZ RN
[2020-12-17 05:08] LABS: Hematocrit 34.2 % (33.0-51.0); Hemoglobin 11.5 g/dL (11.5-16.0)
[2020-12-17 06:01] LABS: Albumin, Blood 3.6 g/dL (3.4-5.0); Anion Gap 7 mmol/L (6-16); Blood Urea Nitrogen 28 mg/dL (8-24); Bun/Creatinine Ratio 32.9 (12.0-20.0); CO2, Blood 24 mmol/L (21-32); Calcium, Blood 8.7 mg/dL (8.5-10.1); Chloride, Blood 105 mmol/L (98-108); Creatinine, Blood 0.85 mg/dL (0.40-1.00); Glomerular Filtration Rate >60 (60-); Glucose, Blood 88 mg/dL (70-99); Magnesium, Blood 1.6 mg/dL (1.6-2.4); Phosphorus, Blood 3.5 mg/dL (2.5-4.9); Potassium, Blood 3.7 mmol/L (3.5-5.5); Sodium, Blood 136 mmol/L (136-145)
--- NOTE | 2020-12-17 17:17 | NUR ---
SHIFT SUMMARY NO ACUTE CHANGES T/O SHIFT, A&O, CALM AND COOPERATIVE c CARE. ANXIOUS AT TIMES, TREATED x2 PER EMAR. PT BECAME MORE ANXIOUS ONCE DAUGHTER ARRIVED TO VISIT. GOOD ORAL INTAKE. PT DISCUSSING WANTING TO GO HOME c HER DAUGHTER BUT NOW UNDERSTANDS SHE SHOULD WAIT FOR DC ORDERS FROM PROVIDERS AND THEIR RECOMMENDATIONS. DOES STATE SHE DOES NOT WANT TO GO TO ANOTHER FACILITY. PT IS CURRENTLY RESTING IN BED WITH CALL LIGHT WITHIN REACH. INDPENDENT IN ROOM.
--- NOTE | 2020-12-18 05:01 | NUR ---
LAW LIBRARIAN SUMMARY PT ALERT AND ORIENTED X 4. PT WAS VISIBLY ANXIOS AND TEARFUL T/O SHIFT. SHAKING HER LEGS, STATED SHE FEELS "ANGUISH". PT WAS COMPLIANT W ALL MEDS AND IS HOPEFUL SHE WILL BEGIN TO FEEL BETTER SOON, STATED "TODAY WAS THE BEST i HAVE FELT IN A LONG TIME". C/O KNEE PAIN, NOT IMPROVED WITH TYLENOL. NO OTHER APPARENT DISTRESS. VITAL SIGNS STABLE. BED IN LOW POSITION, CALL LIGHT IN REACH. WILL CONTINUE TO MONITOR.
[2020-12-18 05:18] LABS: Hematocrit 34.9 % (33.0-51.0); Hemoglobin 11.6 g/dL (11.5-16.0)
--- NOTE | 2020-12-18 05:21 | NUR ---
I AGREE WITH DOCUMENTATION OF SHIMON RUSH STUDENT NURSE. KEREN DÍAZ RN
[2020-12-18 05:45] LABS: Magnesium, Blood 1.6 mg/dL (1.6-2.4)
[2020-12-18 05:46] LABS: Albumin, Blood 3.6 g/dL (3.4-5.0); Anion Gap 7 mmol/L (6-16); Blood Urea Nitrogen 25 mg/dL (8-24); Bun/Creatinine Ratio 28.2 (12.0-20.0); CO2, Blood 23 mmol/L (21-32); Calcium, Blood 8.8 mg/dL (8.5-10.1); Chloride, Blood 106 mmol/L (98-108); Creatinine, Blood 0.89 mg/dL (0.40-1.00); Glomerular Filtration Rate >60 (60-); Glucose, Blood 87 mg/dL (70-99); Phosphorus, Blood 3.7 mg/dL (2.5-4.9); Potassium, Blood 3.4 mmol/L (3.5-5.5); Sodium, Blood 136 mmol/L (136-145)
--- NOTE | 2020-12-18 15:43 | NUR ---
daughter (elyse), here to visit, helped pt to get dressed and ready to go home, pt had called her and told her that she could go home, called dr cortes who stated that no dc paperwork had been completed and that she was working with dr katz, explained that to the daughter who visited a while with the pt then stated on the way out that she would contact the dr and try to arrange for her mom to be able to come home with her, pt was confused and has been up by the door asking when the dr will be back, encouraged her to return to her room to wait, will continue to monitor and treat as prescribed
--- NOTE | 2020-12-18 15:54 | NUR ---
12/18/20- received call from [facility] and they are requesting updated labs and chart notes on pt. They do not have a bed today but wanted to know if pt found placement. Was informed that they would like updates every couple of days. Also faxed Juan Antonio Burrows @ [phone] [facility] @ [phone] @ [phone] [facility] @ [phone] @ [phone] @ [phone]-kjw
--- NOTE | 2020-12-18 18:39 | NUR ---
less energy since daughter's visit, in rm on rm air, no iv, call light in reach, able to walk in arenas with 4ww, no attempts to leave after being told dr Richardson was working on her placement, will continue to monitor and treat until share bsr with noc nurse and pt
--- NOTE | 2020-12-18 23:43 | NUR ---
I HAVE READ AND AGREE WITH NURSE STUDENT SHIMON RUSH'S DOCUMENTATION. J0Lina DÍAZ RN
--- NOTE | 2020-12-19 03:07 | NUR ---
DATA COMMUNICATIONS ANALYST SUMMARY AWAKE AT INTERVALS UNTIL SHE ASKED FOR AND RECEIVED TYLENOL PO FOR KNEE PAIN AND A WARM BLANKET FOR FEELING CHILLS. VSS. RESTING QUIETLY AT THIS TIME. CALL LIGHT IN REACH
[2020-12-19 05:23] LABS: Hematocrit 36.1 % (33.0-51.0); Hemoglobin 12.1 g/dL (11.5-16.0)
[2020-12-19 05:53] LABS: Albumin, Blood 3.8 g/dL (3.4-5.0); Anion Gap 6 mmol/L (6-16); Blood Urea Nitrogen 23 mg/dL (8-24); Bun/Creatinine Ratio 25.9 (12.0-20.0); CO2, Blood 25 mmol/L (21-32); Calcium, Blood 8.9 mg/dL (8.5-10.1); Chloride, Blood 106 mmol/L (98-108); Creatinine, Blood 0.89 mg/dL (0.40-1.00); Glomerular Filtration Rate >60 (60-); Glucose, Blood 88 mg/dL (70-99); Magnesium, Blood 1.6 mg/dL (1.6-2.4); Phosphorus, Blood 3.6 mg/dL (2.5-4.9); Potassium, Blood 3.3 mmol/L (3.5-5.5); Sodium, Blood 137 mmol/L (136-145)
--- NOTE | 2020-12-19 16:10 | NUR ---
12/19/20-Pt's dual diagnosis is substance abuse and mental health. They feel that her mental health issues are related to substance abuse. Updated Dr. Diaz and she shared that she has spoken with pt, she can converse well, let her needs known and she feels that pt would be appropriate for adult foster care. Dr. Diaz also expressed concern over daughter getting guardianship because of documentation in the chart about pt's expressed concerns re: substance abuse and unsafe home environment. Pt has expressed that she does not feel safe in the home and doesn't want to go back. APS has case with them, need to reach out and find out what the reason was for. received call from [facility] ([facility]) they have declined pt stating that she needs dual diagnosis and they do not offer this type of treatment. Received call from Dr. Grant stating that he has put a guardianship letter in the pt's chart and daughter is agreeable to take on this role and she already has access to h pt's bank account. Asked him about dual diagnosis and he is not sure of what substance abuse pt has. Dr. Grant provided daughter's name and number (which is listed in chart). He also provided stucco worker Hiar Aguayo, , contact information. Dr. Diaz updated and she requested that a call be place to [facility] to find out what they exactly mean about pt needing dual diagnosis and to let her know. -nicholas
--- NOTE | 2020-12-19 17:03 | NUR ---
SHIFT SUMMARY NO ACUTE CHANGES NOTED TO PT THIS SHIFT. A&OX3-4, ABLE TO MAKE NEEDS KNOWN. FORGETUL AT TIMES. PLEASANT AND COOPERATIVE TO CARE. PT ANXIOUS AT TIMES. NO C/O PAIN OR ANY DISCOMFORT. NO C/O CP, SOB, OR N&V. PT'S DAUGHTER AT BEDSIDE THIS SHIFT. BED AT LOWEST POSITION. CALL LIGHT WITHIN REACH.
--- NOTE | 2020-12-20 04:34 | NUR ---
SILVERING DEPARTMENT SUPERVISOR SUMMARY PT A/OX4. UNABLE TO SLEEP MOST OF NIGHT BECAUSE SHE "FELT ANXIOUS". MEDICATED WITH PRN PER EMAR, AND SHE DID SLEEP FROM [id number]. VSS, NO APPARENT DISTRESS. WILL CONTINUE TO MONITOR.
--- NOTE | 2020-12-20 05:27 | NUR ---
I AGREE WITH DOCUMENTATION OF SHIMON RUSH STUDENT NURSE. KEREN DÍAZ RN
[2020-12-20 05:46] LABS: Alanine Aminotransfer (ALT/SGP 16 U/L (12-78); Albumin, Blood 3.6 g/dL (3.4-5.0); Albumin/Globulin Ratio 1.2 (0.8-1.8); Alk Phos 71 U/L (50-136); Anion Gap 6 mmol/L (6-16); Aspartate Aminotrans (AST/SGOT 9 U/L (12-37); Bilirubin, Total 0.1 mg/dL (0.1-1.0); Blood Urea Nitrogen 24 mg/dL (8-24); CO2, Blood 25 mmol/L (21-32); Calcium, Blood 8.9 mg/dL (8.5-10.1); Chloride, Blood 107 mmol/L (98-108); Creatinine, Blood 0.83 mg/dL (0.40-1.00); Globulin, Blood 2.9 g/dL (2.2-4.0); Glomerular Filtration Rate >60 (60-); Glucose, Blood 102 mg/dL (70-99); Potassium, Blood 3.7 mmol/L (3.5-5.5); Sodium, Blood 138 mmol/L (136-145); Total Protein, Blood 6.5 g/dL (6.4-8.2)
--- NOTE | 2020-12-20 17:01 | NUR ---
SHIFT SUMMARY NO ACUTE CHANGES NOTED TO PT THIS SHIFT. PT A&OX4, ABLE TO MAKE NEEDS KNOWN. PT ANXIOUS AT TIMES, CALM REASSURANCE PROVIDED. CHAPLAIN STUART TSE ALSO VISITED WITH PT THIS SHIFT. NO C/O PAIN OR ANY DISCOMFORT. NO C/O CP, SOB, OR N&V. PT ON 1.5L FLUID RESTRICTION. BED AT LOWEST POSITION. CALL LIGHT WITHIN REACH.
--- NOTE | 2020-12-20 17:46 | NUR ---
Itzel appeared anxious, but talkative. At times, we laughed together and we had an easy rapport. We chatted about her life, at times she got tangled up in her own timeline. She is Latter day, but responded well to gentle application counselor. She is clearly lonely and I was happy to provide companionship. I will remain available.
--- NOTE | 2020-12-21 05:09 | NUR ---
SHIFT SUMMARY- PT. A&O, OCCASIONALLY FORGETFUL. ANXIOUS AND RESTLESS DURING THE NIGHT. AWAKE MOST OF THE NIGHT. SCHEDULED MEDS GIVEN W/O DIFFICULTY. PT. ALSO C/O KNEE AND BACK PAIN, STATED RELATED TO ARTHRITIS. REQUESTING MED OTHER THAN TYLENOL. NO OTHER PAIN MEDICATION AVAILABLE PER EMAR. HOSPITALIST NOTIFIED, NO ORDER RECEIVED FOR PAIN MED. OFFERED PT. TYLENOL, PT. AGREED. MEDICATED PER EMAR AND APPLIED ICE PACKS TO BOTH KNEES. PT. DENIED ANY OTHER COMPLAINTS OF PAIN OR DISCOMFORT. HAD SEVERAL SNACKS T/O THE NIGHT, ON 1500 FLUID RESTRICTION. MET TOTAL INTAKE FOR THIS SHIFT. VSS. CALL LIGHT WITHIN REACH AND SIDE RAILS UPX2. WILL CONT TO MONITOR.
[2020-12-21 06:41] LABS: Magnesium, Blood 1.4 mg/dL (1.6-2.4); Phosphorus, Blood 3.8 mg/dL (2.5-4.9); Potassium, Blood 3.6 mmol/L (3.5-5.5)
--- NOTE | 2020-12-21 10:46 | NUR ---
12/21/20- PER DR. LARSEN, PT'S DAUGHTER IS COMING TO GET THE PT AND TAKE HER HOME. WE DISCUSSED THAT PT HAS STATED THAT SHE FEELS SAFE WITH HER DAUGHTER. BECAUSE THE PT HAS STATED TO THEM MULTIPLE TIMES THAT SHE IS OK BEING WITH HER DAUGHTER, THERE IS NOTHING DOCUMENTED TO NOT ALLOW HER TO LEAVE. DR. LARSEN REPORTS THAT THE FLOOR NURSE SPOKE WITH THE DAUGHTER OVER THE WEEKEND AND SHE FOUND THE DAUGHTER TO BE HELPFUL AND APPROPRIATE. SHE IS WILLING TO D/C THE PT WITH HER IF DAUGHTER IS WILLING TO OVERSEE HER MOTHER'S MEDICATIONS. -BRIANNE
[2020-12-21] MEDS ORDERED: ACET325 PO (12:39)
[2020-12-21] MEDS ORDERED: CELE100 PO (12:40)
[2020-12-21] MEDS ORDERED: FURO20 PO (12:40)
[2020-12-21] MEDS ORDERED: LISI5 PO (12:41)
[2020-12-21] MEDS ORDERED: METO50ER PO (12:41)
[2020-12-21] MEDS ORDERED: MAGNESIUM OXID500 MG PO (12:41)
[2020-12-21] MEDS ORDERED: Nicoderm Cq1 EAC1 TOP (12:42)
[2020-12-21] MEDS ORDERED: OLAN20 MM (12:42)
[2020-12-21] MEDS ORDERED: POTA10T PO (12:44)
[2020-12-21] MEDS ORDERED: SODCHL1 PO (12:44)
[2020-12-21] MEDS ORDERED: OLAN5 PO (12:44)
--- NOTE | 2020-12-21 13:35 | NUR ---
PT DISCHARGED FROM THE UNIT. MEDICATIONS FAXED. DISCHARGE INSTRUCTIONS REVIEWED WITH PT AND DAUGHTER. INSTRUCTED ON FOLLOW UP APTS. PT LEFT UNIT VIA WHEEL CHAIR
== END 2020-12-21 13:12 | disposition home or self-care (01) ==
LOC: ER 22:19 → MEDS 22:20 → ER 12-09 02:10 → MEDS 12-09 02:10
PROVIDERS: Emergency Medicine; Family Medicine; Hospitalist; Internal Medicine; Internal Medicine Nephrology; ADMIT Internal Medicine
DX: G93.40 Encephalopathy, unspecified (principal); F32.2 Major depressive disorder, single episode, severe without psychotic features; F22 Delusional disorders; R41.3 Other amnesia; I12.9 Hypertensive chronic kidney disease with stage 1 through stage 4 chronic kidney disease, or unspecified chronic kidney disease; N18.2 Chronic kidney disease, stage 2 (mild); N17.9 Acute kidney failure, unspecified; N39.0 Urinary tract infection, site not specified; E87.6 Hypokalemia; E22.2 Syndrome of inappropriate secretion of antidiuretic hormone; F17.210 Nicotine dependence, cigarettes, uncomplicated; M17.0 Bilateral primary osteoarthritis of knee; Z87.820 Personal history of traumatic brain injury; Z88.0 Allergy status to penicillin; Z88.8 Allergy status to other drugs, medicaments and biological substances; Z91.040 Latex allergy status
CPT/HCPCS: 36415; 70450; 80048; 80053; 80069; 81001; 82140; 82530; 82533; 83605; 83690; 83735; 83930; 84100; 84132; 84295; 84443; 85014; 85018; 85025; 87040; 87086; 94640; 94760; 96365; 96366; 96372; 96375; 96376; 97129; 97130; 97165; 99285-25; A9270; G0378; G0480; J0360; J0696; J1650; J2060; J7030

== ENCOUNTER 2021-06-24 11:24 | Emergency (ER) | payer MEDICARE ==
[~2021-06-24] VITALS: Ht 152.4 cm; Wt 78.9 kg
[~2021-06-24 11:24] MED LIST changes: +ACET325 PO; +CELE100 PO; +ESCI10 PO; +LISI5 PO; +MAGNESIUM OXID500 MG PO; +METO50ER PO; +Mirtazapine45 M1 PO; +Nicoderm Cq1 EAC1 TOP; +OLAN20 MM; +OLAN5 PO; +QUETIAPINE FUMA50 M5 PO
[2021-06-24 11:56] LABS: BASOPHILS ABSOLUTE AUTO 0.05 K/mm3 (0.00-0.23); BASOPHILS PERCENT AUTO 1 % (0-2); EOSINOPHILS ABSOLUTE AUTO 0.13 K/mm3 (0.00-0.68); EOSINOPHILS PERCENT AUTO 2 % (0-6); Hematocrit 46.7 % (33.0-51.0); Hemoglobin 15.9 g/dL (11.5-16.0); IMMATURE GRAN ABSOLUTE AUTO 0.06 K/mm3 (0.00-0.10); IMMATURE GRAN PERCENT AUTO 1 % (0-1); LYMPHOCYTES ABSOLUTE AUTO 1.83 K/mm3 (0.84-5.20); LYMPHOCYTES PERCENT AUTO 20 % (21-46); MONOCYTES ABSOLUTE AUTO 0.63 K/mm3 (0.16-1.47); MONOCYTES PERCENT AUTO 7 % (4-13); Mean Corpuscular HGB 30.6 pg (26.0-34.0); Mean Corpuscular Volume 90 fL (80-100); Mean Platelet Volume 9.5 fL (9.1-12.4); NEUTROPHILS ABSOLUTE AUTO 6.26 K/mm3 (1.96-9.15); NEUTROPHILS PERCENT AUTO 70 % (41-73); Platelet Count 274 K/mm3 (150-400); RDW Standard Deviation 49.4 fL (35.1-46.3); White Blood Cell Count 8.96 K/mm3 (4.00-11.30)
[2021-06-24 12:11] LABS: Bilirubin, Total 0.7 mg/dL (0.1-1.0); Bun/Creatinine Ratio 18.4 (12.0-20.0); Calcium, Blood 9.8 mg/dL (8.5-10.1); Creatinine, Blood 1.14 mg/dL (0.40-1.00); Globulin, Blood 3.9 g/dL (2.2-4.0); Potassium, Blood 4.8 mmol/L (3.5-5.5); Total Protein, Blood 7.9 g/dL (6.4-8.2)
[2021-06-24 12:19] LABS: Source, Urine Catheter
[2021-06-24 12:22] LABS: Appearance, Urine Cloudy (Clear); Bilirubin, Urine 1+ (Neg); Blood, Urine 2+ (Neg); Color, Urine Yellow (P-Yellow); Glucose Qualitative, Urine Neg (Neg); Ketones, Urine Neg (Neg); Leukocyte Esterase, Urine 3+ (Neg); Nitrite, Urine Neg (Neg); Protein, Urine 3+ (Neg); Specific Gravity, Urine 1.025 (1.003-1.022); Urobilinogen, Urine NORM (Normal)
[2021-06-24 12:30] LABS: Bacteria Many /hpf; Squamous Epithelial Cells Many /hpf (Few); Transitional Epithelial Cells Mod /hpf (0-Rare)
[2021-06-24 12:31] LABS: Mucus Light (0-Heavy)
[2021-06-24] MEDS ORDERED: CEPH500 PO (14:00)
== END 2021-06-24 14:13 | disposition home or self-care (01) ==
LOC: ER 11:24
PROVIDERS: Physician Assistant
DX: K52.9 Noninfective gastroenteritis and colitis, unspecified (principal); N39.0 Urinary tract infection, site not specified; I10 Essential (primary) hypertension; E78.5 Hyperlipidemia, unspecified; J44.9 Chronic obstructive pulmonary disease, unspecified; K21.9 Gastro-esophageal reflux disease without esophagitis; Z86.73 Personal history of transient ischemic attack (TIA), and cerebral infarction without residual deficits; F17.210 Nicotine dependence, cigarettes, uncomplicated; Z88.0 Allergy status to penicillin; Z88.1 Allergy status to other antibiotic agents; Z88.8 Allergy status to other drugs, medicaments and biological substances; Z91.040 Latex allergy status; Z79.899 Other long term (current) drug therapy
CPT/HCPCS: 36415; 74176; 80053; 81001; 83690; 85025; 87077; 87086; 87186; 96374; 99285-25; A9270; J2405; J7030

== ENCOUNTER 2021-07-01 01:13 | Emergency (ER) | payer MEDICARE ==
[~2021-07-01] VITALS: Ht 160 cm; Wt 78.9 kg
[~2021-07-01 01:13] MED LIST changes: +CEPH500 PO
[2021-07-01 02:33] LABS: BASOPHILS ABSOLUTE AUTO 0.03 K/mm3 (0.00-0.23); BASOPHILS PERCENT AUTO 1 % (0-2); EOSINOPHILS ABSOLUTE AUTO 0.15 K/mm3 (0.00-0.68); EOSINOPHILS PERCENT AUTO 2 % (0-6); Hematocrit 43.6 % (33.0-51.0); IMMATURE GRAN ABSOLUTE AUTO 0.03 K/mm3 (0.00-0.10); IMMATURE GRAN PERCENT AUTO 1 % (0-1); LYMPHOCYTES ABSOLUTE AUTO 1.87 K/mm3 (0.84-5.20); LYMPHOCYTES PERCENT AUTO 30 % (21-46); MONOCYTES ABSOLUTE AUTO 0.69 K/mm3 (0.16-1.47); MONOCYTES PERCENT AUTO 11 % (4-13); Mean Corpuscular HGB 30.5 pg (26.0-34.0); Mean Corpuscular HGB Conc 34.4 g/dL (31.5-36.5); Mean Corpuscular Volume 89 fL (80-100); Mean Platelet Volume 9.2 fL (9.1-12.4); NEUTROPHILS ABSOLUTE AUTO 3.46 K/mm3 (1.96-9.15); NEUTROPHILS PERCENT AUTO 56 % (41-73); Platelet Count 260 K/mm3 (150-400); RDW Coefficient Variation 14.8 % (11.7-14.2); RDW Standard Deviation 48.1 fL (35.1-46.3); Red Blood Cell Count 4.92 M/mm3 (3.80-5.20); White Blood Cell Count 6.23 K/mm3 (4.00-11.30)
[2021-07-01 02:57] LABS: Albumin, Blood 3.5 g/dL (3.4-5.0); Bilirubin, Total 0.2 mg/dL (0.1-1.0); Bun/Creatinine Ratio 13.3 (12.0-20.0); Creatinine, Blood 1.13 mg/dL (0.40-1.00); Globulin, Blood 3.5 g/dL (2.2-4.0); Potassium, Blood 3.2 mmol/L (3.5-5.5)
[2021-07-01 06:41] LABS: Adenovirus F 40/41 Not Detected (NOT DETECT); Astrovirus Not Detected (NOT DETECT); Campylobacter Sp Not Detected (NOT DETECT); Cryptosporidium Not Detected (NOT DETECT); Cyclospora Cayetanensis Not Detected (NOT DETECT); E. Coli O157 Not Detected (NOT DETECT); Entamoeba Histolytica Not Detected (NOT DETECT); Enteroaggregative E. coli-EAEC Not Detected (NOT DETECT); Enteropathogenic E. coli-EPEC Not Detected (NOT DETECT); Enterotoxigenic E. coli-ETEC Not Detected (NOT DETECT); Giardia Lamblia Not Detected (NOT DETECT); Norovirus GI/GII Not Detected (NOT DETECT); Plesiomonas Shigelloides Not Detected (NOT DETECT); Rotavirus A Not Detected (NOT DETECT); Salmonella Sp Not Detected (NOT DETECT); Sapovirus Not Detected (NOT DETECT); Shiga Toxin-prod E. coli-STEC Not Detected (NOT DETECT); Shigella/Enteroin E. coli-EIEC Not Detected (NOT DETECT); Vibrio Cholerae Not Detected (NOT DETECT); Vibrio Sp Not Detected (NOT DETECT); Yersinia Enterocolitica Not Detected (NOT DETECT)
[2021-07-01] MEDS ORDERED: CIPR500 PO (06:54)
== END 2021-07-01 07:03 | disposition home or self-care (01) ==
LOC: ER 01:13
PROVIDERS: Student in an Organized Health Care Education/Training Program
DX: R19.7 Diarrhea, unspecified (principal); I10 Essential (primary) hypertension; E78.5 Hyperlipidemia, unspecified; K21.9 Gastro-esophageal reflux disease without esophagitis; J44.9 Chronic obstructive pulmonary disease, unspecified; Z86.73 Personal history of transient ischemic attack (TIA), and cerebral infarction without residual deficits; F17.210 Nicotine dependence, cigarettes, uncomplicated; Z88.0 Allergy status to penicillin; Z88.1 Allergy status to other antibiotic agents; Z91.040 Latex allergy status; Z88.8 Allergy status to other drugs, medicaments and biological substances; Z79.899 Other long term (current) drug therapy
CPT/HCPCS: 0097U; 80053; 85025; 96365; 96366; 99285-25; A9270; J3480; J7030; J7120

== ENCOUNTER → 2022-07-15 | Outpatient (CLI) | payer MEDICARE ==
[~2022-07-15] MED LIST changes: +LAMICTAL25 M2 PO; -LISI5 PO; -OLAN5 PO; +OLAN5A SL; +PAXIL PO; +Prinivil10 MG PO
== END ==
LOC: LAB 14:30 → LAB SHORT 14:30
DX: R30.0 Dysuria (principal)
CPT/HCPCS: 87077; 87086; 87186

== ENCOUNTER 2023-07-09 03:55 | Emergency (ER) | payer MEDICARE ==
[~2023-07-09] VITALS: Ht 160 cm; Wt 72.6 kg
[2023-07-09 04:28] LABS: Source, Urine Clean Catch
[2023-07-09 04:30] LABS: Bilirubin, Urine Neg (Neg); Blood, Urine 1+ (Neg); Glucose Qualitative, Urine Neg (Neg); Ketones, Urine Neg (Neg); Leukocyte Esterase, Urine 3+ (Neg); Nitrite, Urine Pos (Neg); Protein, Urine 2+ (Neg); Urobilinogen, Urine NORM (Normal)
[2023-07-09] MEDS ORDERED: BUSPIRONE HCL5 M6 PO (04:42)
[2023-07-09] MEDS ORDERED: TRAZ50 PO (04:42)
[2023-07-09] MEDS ORDERED: AMLODIPINE BESYL5 MG PO (04:43)
[2023-07-09 05:06] LABS: Appearance, Urine Cloudy (Clear); Color, Urine Yellow (P-Yellow)
[2023-07-09 05:07] LABS: Amorphous Light (0-Heavy); Bacteria Many /hpf; Red Blood Cells, Urine 0-2 /hpf (0-2); Squamous Epithelial Cells Few /hpf (Few); White Blood Cells, Urine TNTC /hpf (0-5)
[2023-07-09 05:24] LABS: BASOPHILS ABSOLUTE AUTO 0.04 K/mm3 (0.00-0.23); BASOPHILS PERCENT AUTO 1 % (0-2); EOSINOPHILS ABSOLUTE AUTO 0.23 K/mm3 (0.00-0.68); EOSINOPHILS PERCENT AUTO 4 % (0-6); Hematocrit 37.3 % (33.0-51.0); Hemoglobin 12.3 g/dL (11.5-16.0); IMMATURE GRAN ABSOLUTE AUTO 0.02 K/mm3 (0.00-0.10); IMMATURE GRAN PERCENT AUTO 0 % (0-1); LYMPHOCYTES ABSOLUTE AUTO 1.75 K/mm3 (0.84-5.20); LYMPHOCYTES PERCENT AUTO 28 % (21-46); MONOCYTES ABSOLUTE AUTO 0.47 K/mm3 (0.16-1.47); MONOCYTES PERCENT AUTO 8 % (4-13); Mean Corpuscular HGB 30.4 pg (26.0-34.0); Mean Corpuscular Volume 92 fL (80-100); Mean Platelet Volume 8.9 fL (9.1-12.4); NEUTROPHILS ABSOLUTE AUTO 3.75 K/mm3 (1.96-9.15); NEUTROPHILS PERCENT AUTO 60 % (41-73); Platelet Count 243 K/mm3 (150-400); RDW Coefficient Variation 13.2 % (11.7-14.2); RDW Standard Deviation 44.6 fL (35.1-46.3); Red Blood Cell Count 4.04 M/mm3 (3.80-5.20); White Blood Cell Count 6.26 K/mm3 (4.00-11.30)
[2023-07-09] MEDS ORDERED: CIPR500 PO (05:40)
[2023-07-09 05:45] VITALS: BP 124/58
[2023-07-09 05:49] LABS: Albumin, Blood 3.6 g/dL (3.4-5.0); Albumin/Globulin Ratio 1.1 (0.8-1.8); Bilirubin, Total 0.3 mg/dL (0.1-1.0); Bun/Creatinine Ratio 25.5 (12.0-20.0); Calcium, Blood 9.4 mg/dL (8.5-10.1); Creatinine, Blood 0.82 mg/dL (0.40-1.00); Globulin, Blood 3.4 g/dL (2.2-4.0); Potassium, Blood 4.2 mmol/L (3.5-5.5)
== END 2023-07-09 06:43 | disposition home or self-care (01) ==
LOC: ER 03:55
PROVIDERS: Emergency Medicine
DX: N39.0 Urinary tract infection, site not specified (principal); I10 Essential (primary) hypertension; K21.9 Gastro-esophageal reflux disease without esophagitis; E78.5 Hyperlipidemia, unspecified; F17.210 Nicotine dependence, cigarettes, uncomplicated; Z88.0 Allergy status to penicillin; Z88.8 Allergy status to other drugs, medicaments and biological substances; Z91.040 Latex allergy status; Z79.899 Other long term (current) drug therapy; Z86.73 Personal history of transient ischemic attack (TIA), and cerebral infarction without residual deficits
CPT/HCPCS: 71045; 80053; 81001; 85025; 87077; 87086; 87186; 93005; 93010; 96360; 99285-25; A9270; J7030

== ENCOUNTER 2023-07-13 09:58 | Emergency (ER) | payer MEDICARE ==
[~2023-07-13] VITALS: Ht 162.6 cm; Wt 65.8 kg
[~2023-07-13 09:58] MED LIST changes: +AMLODIPINE BESYL5 MG PO; +BUSPIRONE HCL5 M6 PO; +TRAZ50 PO
[2023-07-13 10:53] LABS: BASOPHILS ABSOLUTE AUTO 0.03 K/mm3 (0.00-0.23); BASOPHILS PERCENT AUTO 1 % (0-2); EOSINOPHILS ABSOLUTE AUTO 0.05 K/mm3 (0.00-0.68); EOSINOPHILS PERCENT AUTO 1 % (0-6); Hematocrit 37.6 % (33.0-51.0); Hemoglobin 12.9 g/dL (11.5-16.0); IMMATURE GRAN ABSOLUTE AUTO 0.01 K/mm3 (0.00-0.10); IMMATURE GRAN PERCENT AUTO 0 % (0-1); LYMPHOCYTES PERCENT AUTO 17 % (21-46); MONOCYTES ABSOLUTE AUTO 0.35 K/mm3 (0.16-1.47); MONOCYTES PERCENT AUTO 6 % (4-13); Mean Corpuscular HGB Conc 34.3 g/dL (31.5-36.5); Mean Corpuscular Volume 90 fL (80-100); Mean Platelet Volume 9.1 fL (9.1-12.4); NEUTROPHILS ABSOLUTE AUTO 4.84 K/mm3 (1.96-9.15); NEUTROPHILS PERCENT AUTO 76 % (41-73); Platelet Count 202 K/mm3 (150-400); RDW Coefficient Variation 13.1 % (11.7-14.2); RDW Standard Deviation 43.1 fL (35.1-46.3); Red Blood Cell Count 4.16 M/mm3 (3.80-5.20); White Blood Cell Count 6.38 K/mm3 (4.00-11.30)
[2023-07-13 11:05] LABS: Source, Urine Straight Cath
[2023-07-13 11:10] LABS: Appearance, Urine Clear (Clear); Bilirubin, Urine Neg (Neg); Blood, Urine Neg (Neg); Color, Urine Yellow (P-Yellow); Glucose Qualitative, Urine Neg (Neg); Ketones, Urine Neg (Neg); Leukocyte Esterase, Urine Neg (Neg); Nitrite, Urine Neg (Neg); Protein, Urine 3+ (Neg); Urobilinogen, Urine NORM (Normal)
[2023-07-13 11:20] LABS: Albumin, Blood 3.9 g/dL (3.4-5.0); Albumin/Globulin Ratio 1.2 (0.8-1.8); Bilirubin, Total 0.6 mg/dL (0.1-1.0); Bun/Creatinine Ratio 21.7 (12.0-20.0); Calcium, Blood 9.7 mg/dL (8.5-10.1); Creatinine, Blood 0.97 mg/dL (0.40-1.00); Globulin, Blood 3.3 g/dL (2.2-4.0); Potassium, Blood 3.8 mmol/L (3.5-5.5); Total Protein, Blood 7.2 g/dL (6.4-8.2)
[2023-07-13 11:42] LABS: White Blood Cells, Urine 0-2 /hpf (0-5)
[2023-07-13 11:43] LABS: Red Blood Cells, Urine 0-2 /hpf (0-2)
[2023-07-13 11:44] LABS: Squamous Epithelial Cells Rare /hpf (Few)
[2023-07-13 11:45] LABS: Bacteria Few /hpf; Mucus Mod (0-Heavy)
[2023-07-13 11:46] LABS: Renal Epithelial Rare /hpf (0-Rare)
[2023-07-13 12:20] VITALS: BP 168/101
[2023-07-13] MEDS ORDERED: LORA.5 PO (12:25)
== END 2023-07-13 12:38 | disposition home or self-care (01) ==
LOC: ER 09:58
PROVIDERS: Emergency Medicine
DX: R41.0 Disorientation, unspecified (principal); R45.1 Restlessness and agitation; F17.210 Nicotine dependence, cigarettes, uncomplicated
CPT/HCPCS: 80053; 81001; 85025; 96361; 96374; 99284-25; J2060; J7030; P9612

== ENCOUNTER → 2023-07-16 | Outpatient (CLI) | payer MEDICARE ==
[~2023-07-16] MED LIST changes: +LORA.5 PO
== END ==
LOC: LAB SHORT 15:49 → LAB 15:49
DX: N30.00 Acute cystitis without hematuria (principal)
CPT/HCPCS: 87086

== ENCOUNTER 2023-07-22 05:56 | Inpatient (IN) | payer MEDICARE ==
[2023-07-22] VITALS (48 sets, daily range): BP systolic 91–144; BP diastolic 49–86
[~2023-07-22] VITALS: Ht 167.6 cm; Wt 69.0 kg
[2023-07-22 06:29] LABS: BASOPHILS ABSOLUTE AUTO 0.07 K/mm3 (0.00-0.23); BASOPHILS PERCENT AUTO 1 % (0-2); EOSINOPHILS ABSOLUTE AUTO 0.25 K/mm3 (0.00-0.68); EOSINOPHILS PERCENT AUTO 2 % (0-6); Hematocrit 37.8 % (33.0-51.0); Hemoglobin 12.8 g/dL (11.5-16.0); IMMATURE GRAN ABSOLUTE AUTO 0.07 K/mm3 (0.00-0.10); IMMATURE GRAN PERCENT AUTO 1 % (0-1); LYMPHOCYTES ABSOLUTE AUTO 3.51 K/mm3 (0.84-5.20); LYMPHOCYTES PERCENT AUTO 31 % (21-46); MONOCYTES ABSOLUTE AUTO 0.43 K/mm3 (0.16-1.47); MONOCYTES PERCENT AUTO 4 % (4-13); Mean Corpuscular HGB Conc 33.9 g/dL (31.5-36.5); Mean Corpuscular Volume 92 fL (80-100); Mean Platelet Volume 9.4 fL (9.1-12.4); NEUTROPHILS ABSOLUTE AUTO 6.99 K/mm3 (1.96-9.15); NEUTROPHILS PERCENT AUTO 62 % (41-73); Platelet Count 279 K/mm3 (150-400); RDW Coefficient Variation 13.1 % (11.7-14.2); RDW Standard Deviation 43.9 fL (35.1-46.3); Red Blood Cell Count 4.13 M/mm3 (3.80-5.20); White Blood Cell Count 11.32 K/mm3 (4.00-11.30)
[2023-07-22 06:51] LABS: Albumin, Blood 3.4 g/dL (3.4-5.0); Albumin/Globulin Ratio 1.1 (0.8-1.8); Bilirubin, Total 0.5 mg/dL (0.1-1.0); Bun/Creatinine Ratio 14.8 (12.0-20.0); Calcium, Blood 8.1 mg/dL (8.5-10.1); Creatinine, Blood 0.74 mg/dL (0.40-1.00); Globulin, Blood 3.1 g/dL (2.2-4.0); Potassium, Blood 3.5 mmol/L (3.5-5.5); Total Protein, Blood 6.5 g/dL (6.4-8.2)
[2023-07-22 08:21] LABS: Source, Urine Straight Cath
[2023-07-22 08:25] LABS: Bilirubin, Urine Neg (Neg); Blood, Urine Neg (Neg); Glucose Qualitative, Urine Neg (Neg); Ketones, Urine Neg (Neg); Leukocyte Esterase, Urine Neg (Neg); Nitrite, Urine Neg (Neg); Protein, Urine 2+ (Neg); Specific Gravity, Urine 1.015 (1.003-1.022); Urobilinogen, Urine NORM (Normal)
[2023-07-22 08:40] LABS: Appearance, Urine Clear (Clear); Bacteria Not Seen /hpf; Color, Urine Yellow (P-Yellow); Red Blood Cells, Urine Not Seen /hpf (0-2); Squamous Epithelial Cells Not Seen /hpf (Few); White Blood Cells, Urine Not Seen /hpf (0-5)
[2023-07-22 08:56] LABS: U Amphetamine Screen Not Detected; U Barbituate Screen Not Detected; U Benzodiazapine Screen DETECTED; U Buprenorphine Screen Not Detected; U Cannabinoids Screen Not Detected; U Cocaine Screen Not Detected; U Methadone Screen Not Detected; U Methamphetamine Screen Not Detected; U Opiates Screen Not Detected; U Oxycodone Screen Not Detected; U Phencyclidine Screen Not Detected
[2023-07-22 11:57] LABS: Calcium, Blood 8.6 mg/dL (8.5-10.1); Creatinine, Blood 0.8 mg/dL (0.40-1.00); Magnesium, Blood 1.3 mg/dL (1.6-2.4); Phosphorus, Blood 3.3 mg/dL (2.5-4.9); Potassium, Blood 3.5 mmol/L (3.5-5.5)
[2023-07-22 12:02] LABS: PCO2 Arterial 41.2 mmHg (35-45); PO2 Arterial 89.1 mmHg (80-100)
[2023-07-22] MEDS ORDERED: ESCI10 PO (13:09)
--- NOTE | 2023-07-22 17:50 | NUR ---
SHIFT SUMMARY PT ARRIVED TO ICU 8 AT 1100 VIA ER BED. PT ARRIVED INTUBATED AND SEDATED WITH VERSED GTT. PT HAS REMAINED INTUBATED THIS SHIFT, VENT SETTINGS AC 14, TV 400, PEEP 5, FIO2 30%. PT WITH SMALL AMOUNT OF THICK, YELLOW ETT SECRETIONS. PT INITIALLY ARRIVED WITH INTERNAL ROTATION OF BUE'S AND BLE'S. THROUGHOUT THE AFTERNOON VERSED GTT TITRATED OFF PER DR SCOTT ORDERS. PT BECAME MORE RESTLESS AND WITH MORE PURPOSEFUL MOVEMENTS OF BUES'S SPONTANEOUSLY. PT PLACED IN SBW RESTRAINTS AND PROPOFOL GTT STARTED AT 20 MCG/KG/MIN. EEG DONE. PT WITH OGT IN PLACE TO LIS WITH MINIMAL BILE OUTPUT NOTED. NGUYEN TEMP PROBE IN PLACE WITH CLEAR YELLOW OUTPUT NOTED. VITAL SIGNS HAVE REMAINED STABLE. WILL CONTINUE TO MONITOR AND REPORT OFF TO ONCOMING RN.
--- NOTE | 2023-07-22 18:06 | NUR ---
VERSED WASTE 45 ML OF VERSED GTT WASTED WITH YOMI SHANKS RN.
--- NOTE | 2023-07-22 20:44 | NUR ---
ASSUMPTION OF CARE: RECEIVED REPORT FROM TAMY Dave RN AND ROGER BULLOCK. PT INTUBATED AND SEDATED. PROPOFOL DECREASED TO 10 MCG/KG/MIN FOR ASSESSMENT. PT HAS OCCASIONAL INWARD ROTATION OF UPPER AND LOWER EXTREMETIES. DOES NOT OPEN EYES TO VERBAL STIMULI OR FOLLOW COMMANDS. PT DOES WITHDRAW TO PAINFUL STIMULI. VENT SETTINGS AC/VC 14/400/5.0/30%. SPO2 >95%. OGT SET TO LOW INTERMITTENT SUCTION. DIRECTOR SECURITY RISK MANAGEMENT IN PLACE, SR WITH HR 60'S. SBP 110'S. NGUYEN IN PLACE, DRAINING TO GRAVITY. PIV'S INTACT. RAC INFUSING. NO GAG, COUGH OR SWALLOW NOTED. BED LOW AND LOCKED. SOFT WRIST RESTRAINTS IN PLACE FOR PROTECTION OF AIRWAY.
[2023-07-23] VITALS (49 sets, daily range): BP systolic 96–156; BP diastolic 42–90
--- NOTE | 2023-07-23 06:13 | NUR ---
SHIFT SUMMARY: NO ACUTE EVENTS T/O THE SHIFT. PT DOES NOT OPEN EYES TO VERBAL STIMULI. DOES NOT FOLLOW COMMANDS. WITHDRAWS TO PAINFUL STIMULI, HAS INWARD ROTATION OF UPPER AND LOWER EXTREMETIES AND UNCONTROLLED MOVEMENTS OF EXTREMETIES. NO GAG OR COUGH NOTED WITH SUCTIONING. PT REMAINS INTUBATED AND SEDATED. PROPOFOL INFUSING AT 20 MCG/KG/MIN. VENT SETTINGS AC/VC 14/400/5/30%. SPO2 >95%. SUCTIONING SCANT SECRETIONS FROM ET TUBE. OGT SET TO LOW INTERMITTENT SUCTION, SMALL AMOUNT OF GREEN BILE NOTED. ORCHID HAND IN PLACE, SR WITH HR 80'S. SBP 110'S-120'S. NGUYEN REMAINS FOR CRITICAL I&O, DRAINING YELLOW URINE TO GRAVITY. NO BM THIS SHIFT. PIV'S INTACT. TEMP 99.5-100.5, FAN IN PLACE. BED LOW AND LOCKED.
[2023-07-23 07:36] LABS: BASOPHILS ABSOLUTE AUTO 0.03 K/mm3 (0.00-0.23); BASOPHILS PERCENT AUTO 0 % (0-2); EOSINOPHILS ABSOLUTE AUTO 0.02 K/mm3 (0.00-0.68); EOSINOPHILS PERCENT AUTO 0 % (0-6); Hematocrit 32.6 % (33.0-51.0); Hemoglobin 11.1 g/dL (11.5-16.0); IMMATURE GRAN ABSOLUTE AUTO 0.05 K/mm3 (0.00-0.10); IMMATURE GRAN PERCENT AUTO 0 % (0-1); LYMPHOCYTES ABSOLUTE AUTO 1.32 K/mm3 (0.84-5.20); LYMPHOCYTES PERCENT AUTO 10 % (21-46); MONOCYTES ABSOLUTE AUTO 1.21 K/mm3 (0.16-1.47); MONOCYTES PERCENT AUTO 9 % (4-13); Mean Corpuscular HGB 31.4 pg (26.0-34.0); Mean Corpuscular Volume 92 fL (80-100); Mean Platelet Volume 9.3 fL (9.1-12.4); NEUTROPHILS ABSOLUTE AUTO 10.24 K/mm3 (1.96-9.15); NEUTROPHILS PERCENT AUTO 80 % (41-73); Platelet Count 182 K/mm3 (150-400); RDW Coefficient Variation 13.6 % (11.7-14.2); RDW Standard Deviation 46.2 fL (35.1-46.3); Red Blood Cell Count 3.54 M/mm3 (3.80-5.20); White Blood Cell Count 12.87 K/mm3 (4.00-11.30)
[2023-07-23 07:53] LABS: Albumin, Blood 3.3 g/dL (3.4-5.0); Albumin/Globulin Ratio 1.1 (0.8-1.8); Bilirubin, Total 0.4 mg/dL (0.1-1.0); Bun/Creatinine Ratio 16.5 (12.0-20.0); Calcium, Blood 8.8 mg/dL (8.5-10.1); Creatinine, Blood 0.79 mg/dL (0.40-1.00); Magnesium, Blood 1.9 mg/dL (1.6-2.4); Potassium, Blood 3.3 mmol/L (3.5-5.5); Total Protein, Blood 6.3 g/dL (6.4-8.2)
--- NOTE | 2023-07-23 11:00 | NUR ---
ASSUMED CARE CARE WAS ASSUMED OF PT AT 0700, REPORT GIVEN BY JULIANNE RN AND FINA RN. PT INTUBATED AND SEDATED, PROPOFOL GTT INFUSING AT CHANGE OF SHIFT, SEE FLOWSHEET. PT RESTLESS WITH MOVEMENT, ABLE TO MOVE ALL FOUR EXTREMTIIES BUT IS NOT REDIRECTABLE. PT OPENS EYES OCCASIONALLY BUT WITHOUT INTENTION WITH THE EXCEPTION OF TWO DIFFERENT OCCURANCES WHERE PT OPENED EYES WHEN NAME WAS SPOKEN. PT REMAINS IN BILATERAL SOFT WRIST RESTRAINTS FOR SAFETY, OCCASIONALLY PULLINGS AGAINST RESTRAINTS. NO SEIZURE ACTIVITY NOTED. VENT SETTINGS AT SHIFT CHANGE AC/VC 14/400/5/30%. O2 SATS > 94%. CARDIAC MONITORING REFLECTS NSR, SBP 130s, HR 80s. NGUYEN PATENT AND DRAINING TO GRAVITY. OG IN PLACE, SET TO LIS. KCL INFUSING FOR POTASSIUM REPLACEMENT. PRECEDEX STARTED THIS MORNING WITH PROPOFOL ON SB, SEE FLOWSHEET. PT SWITCHED TO SPONT. BY DR. SCOTT, PS 6, PEEP 7. PT TOLERATING WELL, TIDAL VOLUMES 400s-500s, O2 SATS > 90%.
--- NOTE | 2023-07-23 12:06 | NUR ---
PT UPDATE PT SWITCHED BACK TO ORIGINAL VENT SETTINGS BY DR. SCOTT, AC/VC 14/400/5/25%. O2 SATS > 90%. PT NOT FOLLOWING COMMANDS, OCCASIONALLY OPENS EYES BUT DIFFICULT TO DISTINGUISH IF INTENTIONAL OR NOT. PRECEDEX GTT INFUSING, SEE FLOWSHEET.
[2023-07-23] MEDS ORDERED: AUSTEDO 24 MG PO (15:18)
--- NOTE | 2023-07-23 17:25 | NUR ---
SHIFT SUMMARY PT REMAINS INTUBATED AND SEDATED. PRECEDEX GTT INFUSING, SEE FLOWSHEET. PT CONTINUES TO APPEAR RESTLESS WITH PHYSICAL STIMULATION, MOVING ALL FOUR EXTREMITES. PT NOT FOLLOWING COMMANDS AT THIS TIME, OPENING EYES OCCASIONALLY BUT WITHOUT INTENTION. PT REMAINS IN SOFT BILATERAL WRIST RESTRAINTS FOR SAFETY, PULLING AGAINST RESTRAINTS WITH CARE. NO SEIZURE ACTIVITY NOTED THIS SHIFT. SBT INITIATED THIS SHIFT, SEE NURSE NOTE. VENT SETTINGS AT THIS TIME AC/VC 14/400/5/25%. O2 SATS > 90%. CARDIAC MONITORING REFLECTS NSR AT THIS TIME, HR 70s. SBP 110s. TF STARTED THIS SHIFT, INFUSING AT 25 mL/HR, GOAL 55 mL/HR THROUGH OG. TEMP NGUYEN PATENT AND DRAINING TO GRAVITY. PLAN TO REEVALUATE EXTUBATING PT TOMORROW.
[2023-07-24] VITALS (25 sets, daily range): BP systolic 100–165; BP diastolic 56–93
[2023-07-24 03:57] LABS: Magnesium, Blood 1.9 mg/dL (1.6-2.4)
[2023-07-24 03:58] LABS: Bun/Creatinine Ratio 19.3 (12.0-20.0); Calcium, Blood 8.7 mg/dL (8.5-10.1); Creatinine, Blood 0.73 mg/dL (0.40-1.00); Phosphorus, Blood 2.6 mg/dL (2.5-4.9); Potassium, Blood 4.1 mmol/L (3.5-5.5)
--- NOTE | 2023-07-24 05:51 | NUR ---
SHIFT SUMMERY PT REMAINS INTUBATED VIA ETT, INTACT AND PATENT TO VENT. OXYGEN SAT >90% OVERNIGHT. PT HAS BEEN SB-SR ON THE CARDAIC MONITOR, BP WNL. TEMP NGUYEN INTACT PATENT AND DRAINING DARK URINE TO GRAVITY. TF INFUSING, INCREASING TO GOAL APPROPRIATE. PT HAS NOT FOLLOWED COMMANDS BUT BECOMES VERY AGITIATED W/ANY VERBAL/TACTILE STIMULATION.
[2023-07-24 07:43] LABS: LAMOTRIGINE 26.2 ug/mL (3.0-15.0)
--- NOTE | 2023-07-24 09:17 | NUR ---
ASSUMED CARE CARE WAS ASSUMED OF PT AT 0700, REPORT GIVEN BY QUINN BULLOCK. PT REMAINS INTUBATED, SEDATION ON AT SHIFT CHANGE. PRECEDEX ON SB AT THIS TIME, PLAN TO EXTUBATE PT TODAY PER DR. OGLESBY, SEE FLOWSHEET. PT UNABLE TO FOLLOW COMMANDS, APPEARS RESTLESS AND AGITATED IN BED WITH ANY TACTILE STIMULATION, DIFFICULT TO CONSOLE. PT APPEARS CALM WITH UNINTERUPTED REST. PT REMAINS IN SOFT BILATERAL WRIST RESTRAINTS FOR SAFETY. PT SWITCHED TO SPONT. AROUND [address] SCOTT, PS 10, PEEP 7, FiO2 25%. PT TOLERATING WELL, TIDAL VOLUMES 400s. O2 SATS > 92%. CARDIAC MONITORING REFLECTS NSR, HR 70s-60s. SBP 140s. MEDS GIVEN THROUGH OG THIS MORNING, TF ON HOLD D/T PLAN FOR EXTUBATION TODAY. TEMP NGUYEN PATENT AND DRAINING TO GRAVITY. RED SEDIMENT NOTED IN YELLOW URINE.
--- NOTE | 2023-07-24 10:41 | NUR ---
EXTUBATION PT EXTUBATED AT 1027. PT TOLERATING SPONT. VENT SETTINGS PREVIOUSLY NOTED IN NURSE NOTE. O2 SATS > 92%. TIDAL VOLUMES 400s. DAUGHTERS, RAHAT AND HUMBERTO AT BEDSIDE, EDUCATED BY DR. SCOTT REGARDING PLAN TO EXTUBATE AND CONFIRMED PLAN TO NOT REINTUBATE PT IF PT FAILS EXTUBATION. PLAN TO GIVE PT MORPHINE FOR PAIN IF NEEDED. DAUGHTERS AGREED TO AND CONFIRMED PLAN. RESTRAINTS REMOVED AT EXTUBATION.
--- NOTE | 2023-07-24 16:42 | NUR ---
Met with pt's daughters today at pt's bedside just after extubation. They were initially unsure about comfort care, and stated they want to "see how she does" after extubation. Unfortunately, the pt began showing signs of discomfort, including increased heart rate, furrowed brow. She is unresponsive. After some time, the pt's daughter Tashia decided to change the pt to comfort care. The pt was given roxanol, and her HR and respirations slowed. She appeared more relaxed, and her daughters both verbalize feeling "much better about things now", and v/u that the patient's condition is terminal, and she is becoming immenent.
--- NOTE | 2023-07-24 17:03 | NUR ---
SHIFT SUMMARY PT EXTUBATED THIS SHIFT, SEE PREVIOUS NURSE NOTE. AFTER EXTUBATION PT'S MENTAL STATUS DID NOT IMPROVE, PT CONTINUED TO NOT RESPOND VERBALLY OR HAVE ANY PURPOSEFUL MOVEMENTS. PT AGITATED WITH TACTILE STIMULATION. PALLIATIVE CARE CONSULTED, DECISION MADE BY PT'S DAUGHTERS TO HAVE PT TRANSITION TO COMFORT CARE. PT MEDICATED PER EMAR FOR PAIN THIS SHIFT. PT DIFFICULT TO CONSOLE. NGUYEN REMAINS IN PLACE FOR COMFORT.
--- NOTE | 2023-07-24 19:00 | NUR ---
ASSUMED CARE OF PT AT THIS TIME. PT IS COMFORT CARE. PT DAUGHTER IN ROOM WITH PT DIRECTLY AFTER BEDSIDE SHIFT REPORT. DAUGHTER CAME TO NURSES STATION ASKING FOR WATER AND ICE CHIPS FOR THE PATIENT. DAUGHTER WAS EXPLAINED TO THAT PT CAN NOT HAVE ANYTHING BY MOUTH AT THIS TIME EXCEPT FOR MEDICATIONS THAT ARE ADMINISTERED PROPERLY.
[2023-07-24 21:10] LABS: CK TOTAL 44 U/L (26-192); CK-BB 0 % (0-0); CK-MACRO TYPE I 0 % (0-0); CK-MACRO TYPE II 0 % (0-0); CK-MB 0 % (0-4); CK-MM 100 % (96-100)
--- NOTE | 2023-07-25 06:47 | NUR ---
0630 ASSUMED CARE OF PT AT TIME OF TRANSFER FROM ICU 8 TO 338. PT IS COMFORT CARE STATUS. PT'S DAUGHTER TO WITH PT. SLIDE TX TO BED. PT IS NONRESPONSIVE, JUST MOANS. MEDICATED PER EMAR. WILL REPORT TO ONCOMING RN.
--- NOTE | 2023-07-25 12:20 | NUR ---
Spiritual care visit conducted. Minutes after the patient , I met patient's dtr in the patient's room. She leaves the room and I walk with her and we talk abut the impact of her mother's and the trouble she is having processing it. She tells me she has questions for the patient's RN so we walk back to the pt's room. She asks if anyone is present when she and what medications were given, this seams to give her some peace. She asks me to walk her to her car but then stops in the hallway and states that she would like to call her nephew, I allow her to make that call. I will continue to remain available to patient and family
--- NOTE | 2023-07-25 12:23 | NUR ---
EXPIRATION: PT @1145. AROUND 1100 THIS RN NOTICED PT TRANSITION FROM SNORING TO GURGLE IN THROAT. ATROPINE DROPS AND ROXANOL PROVIDED. WENT INTO ROOM @1145 TO REASSESS PT AND COMPLETE Q2 TURN AND NOTICED PT PALE AND W/O CHEST MOVEMENT. CALLED SECOND RN SID AGUIRRE. LISTENED TO LUNG AND HEART W/O BREATH SOUNDS AND HEARTBEAT. PT PUPILS NON REACTIVE. TOD CALLED @1145. PALLIATIVE, FURNITURE RENTAL CONSULTANT, AND DR. HAYS CALLED TO NOTIFY OF EXPIRATION. BATH PROVIDED. IV IN RAC AND RHA REMOVED. NGUYEN REMOVED. CIARAN AND PALLIATIVE SPOKE WITH AND LISTENED TO DAUGHTER(S) THEY GRIEVED. HOME NOT CHOSEN AT THIS TIME.
--- NOTE | 2023-07-25 13:26 | NUR ---
Post Mortum Care and Support Notified by Primary RN of pt's passing. Family was enroute to hospital. Primary RN, GURWINDER and this PC RN provided post mortum comfort bath. Dtr, Tamika entered pt room as comfort bath was being completed. Tamika was very distraught, not making eye contact and stated, "I guess there is no need for me to be here." Car Repossessor, Tim attempted to provide support for Tamika. After post mortum care completed this PC RN called Tamika on the phone to provide support and inquire about home choice. Tamika reported she was sitting in her car in hospital parking lot. She welcomed a supportive visit and requested the visit take place outside the hospital. Tamika located a card for [employer] for pt. Pt had a prepaid plan with [facility] [employer] ([facility]). IC contract out to a local home that is determind at time of pt passing. This PC RN assisted Tamika in contacting [facility]. We spoke with Kevin from at [phone]. Kevin reports he will coordinate pharmacy account director, then contact hospital and family with [facility] decision. Kevin provided with drafting teacher contact info. drafting teacher and Primary RN updated. contact family
--- NOTE | 2023-07-25 14:54 | NUR ---
ROSITA UPTON FROM [employer] ARRIVED @2211 TO BEEF SKINNER PT.
== END 2023-07-25 11:50 | DRG 100 ==
LOC: ER 05:56 → MEDS 09:44 → ICUE 09:44 → MEDS 07-25 06:27
PROVIDERS: Emergency Medicine; Student in an Organized Health Care Education/Training Program; ADMIT Family Medicine
PROC: 5A1945Z Respiratory Ventilation, 24-96 Consecutive Hours (ICD-10-PCS; principal; 2023-07-22)
PROC: 0BH17EZ Insertion of Endotracheal Airway into Trachea, Via Natural or Artificial Opening (ICD-10-PCS; 2023-07-22)
DX: G40.901 Epilepsy, unspecified, not intractable, with status epilepticus (principal); G93.41 Metabolic encephalopathy; J96.00 Acute respiratory failure, unspecified whether with hypoxia or hypercapnia; F03.93 Unspecified dementia, unspecified severity, with mood disturbance; F05 Delirium due to known physiological condition; Z51.5 Encounter for palliative care; Z66 Do not resuscitate; I10 Essential (primary) hypertension; F15.10 Other stimulant abuse, uncomplicated; F12.10 Cannabis abuse, uncomplicated; G24.01 Drug induced subacute dyskinesia; J44.9 Chronic obstructive pulmonary disease, unspecified; F17.290 Nicotine dependence, other tobacco product, uncomplicated; F31.9 Bipolar disorder, unspecified; E78.5 Hyperlipidemia, unspecified; K21.9 Gastro-esophageal reflux disease without esophagitis; I25.10 Atherosclerotic heart disease of native coronary artery without angina pectoris
CPT/HCPCS: 31500; 31720; 36415; 36600; 43752; 51702; 70450; 71045; 80048; 80053; 80175; 81001; 82550; 82552; 82803; 82947; 83735; 84100; 85025; 87040; 93005; 93010; 94002; 94003; 94640; 94664; 94762; 95819; 96361-59; 96374-59; 96375-59; 96376-59; 99285-25; A9270; J0696; J1650; J1953; J2060; J2250; J2270; J2704; J3475; J3480; J7030; J7040; J7050